=== PATIENT | male | born 1950 | race Caucasian/White ===

== ENCOUNTER 2017-01-20 13:25 | Emergency (ER) | payer BC ==
--- NOTE | 2017-01-20 16:18 | RAD ---
Indication: Bilateral flank pain. CT of the abdomen and pelvis was performed without oral and IV contrast administration. Coronal and sagittal reconstructed images were obtained. Lung bases demonstrate no pleural fluid, nodules or masses. Heart is of normal size without evidence of pericardial effusion. Liver is normal in size. No focal lesions or intrahepatic ductal dilatation is noted. Gallbladder is distended with no calcified gallstones. No pericholecystic fluid or wall thickening is identified. Common duct is not dilated. The spleen is normal in size. No adrenal masses are noted. The pancreas demonstrates no mass or pancreatic duct dilatation. The kidneys demonstrate no hydronephrosis in either kidney. Multiple renal calculi are noted in both kidneys the largest in the lower pole of left kidney measuring up to 8 mm. No retroperitoneal lymphadenopathy is noted. No dilated loops of bowel are noted. The urinary bladder is partially collapsed. No hernias are noted. The remainder of the pelvis demonstrates no evidence of free fluid. No pelvic adenopathy is noted. Small bowel demonstrates no abnormal dilatation. No hernias are noted. Multilevel degenerative disc disease is noted. IMPRESSION: BILATERAL RENAL CALCULI. NO EVIDENCE OF OBSTRUCTIVE UROPATHY IS NOTED HOWEVER. NO OTHER MASSES OR FLUID COLLECTIONS ARE IDENTIFIED.
[2017-01-20 16:24] VITALS: BP 127/68
--- NOTE | 2017-01-20 18:05 | UC ---
Adilene Cantor Edward, scribed for Obdulio Oscar MD on 01/20/17 at 1531 . Back Pain HPI - HPI Summary HPI Summary: 66 y/o male presents to [facility] c/o bilateral flank pain. Pain started a couple of weeks ago and has gotten progressively worse. Pain is characterized as a pounding, sore pain moderate in severity currently. Pain was aggravated last night after the patient took a shower. Denies abd pain, dysuria, fever, chills, and body aches. Associated sx: chronic back pain (takes oxycontin), bilateral pedal edema. PMHx Type 2 DM, fatty liver, kidney stones L side (5 years ago). SHx lilthotripsy (5 years ago). - History of Current Complaint Chief Complaint: UCGeneralIllness Stated Complaint: LOWER BACK PAIN Time Seen by Provider: 01/20/17 15:22 Hx Obtained From: Patient Onset/Duration: Lasting Weeks Severity Initially: Mild Severity Currently: Moderate Character: Aching - "Sore", Throbbing - "Pounding" Aggravating: Bending Associated Signs And Symptoms: Positive: Negative - Chills, Dysuria, body aches , Swelling - Chronic intermittent ankle edema, Flank Pain. Negative: Fever, Abdominal Pain - Allergies/Home Medications Allergies/Adverse Reactions: Allergies Allergy/AdvReac Type Severity Reaction Status Date / Time Pregabalin [From Lyrica] AdvReac Unknown Unknown Verified 01/11/17 14:29 Reaction Details PMH/Surg Hx/FS Hx/Imm Hx - Additional Past Medical History Additional PMH: Chronic back pain. Previously Healthy: No Endocrine History: Diabetes - Type 2, Thyroid Disease Cardiovascular History: Hypertension GI/ History: Kidney Stones - L side - Surgical History Surgical History: Yes Surgery Procedure, Year, and Place: Left Shoulder x2; Right Knee; Back; Lithotripsy - Family History Known Family History: Positive: Cardiac Disease - AFIB. Paternal uncles dec from Cardiac c/o, Other - Mother - stents - Social History Occupation: Retired Lives: Alone Alcohol Use: None Substance Use Type: None Smoking Status (MU): Former Smoker Type: Cigarettes When Did the Patient Quit Smoking/Using Tobacco: 1988 Review of Systems Constitutional: Negative - Negative fever, chills Skin: Negative Eyes: Negative ENT: Negative Respiratory: Negative Cardiovascular: Negative Gastrointestinal: Negative - Negative abd pain Genitourinary: Other - Bilateral flank pain. Negative dysuria Motor: Negative Neurovascular: Negative Musculoskeletal: Edema - Bilateral ankle swelling, Myalgia - Chronic back pain, Other: - Denies body aches Neurological: Negative Psychological: Negative All Other Systems Reviewed And Are Negative: Yes Physical Exam Triage Information Reviewed: Yes Appearance: Well-Appearing, No Pain Distress Vital Signs: Initial Vital Signs Temp 98 F 01/20/17 13:29 Pulse 67 01/20/17 13:29 Resp 16 01/20/17 13:29 BP 124/76 01/20/17 13:29 Pulse Ox 97 01/20/17 13:29 Vital Signs Reviewed: Yes Eye Exam: Normal ENT Exam: Normal Neck: Positive: Supple, Nontender Respiratory: Positive: Lungs clear, Normal breath sounds Cardiovascular: Positive: RRR Abdomen Description: Positive: Nontender, Soft Bowel Sounds: Positive: Present Musculoskeletal: Positive: Strength Intact, ROM Intact, Other: - Tenderness bilateral flanks. No midline tenderness. Neurological: Positive: Alert Psychological Exam: Normal Skin: Positive: Other - 1+ pedal edema Diagnostics - Radiology ABD/PELVIS CT Xray Interpretation: Positive (See Comments) - BILATERAL RENAL CALCULI. NO EVIDENCE OF OBSTRUCTIVE UROPATHY IS NOTED HOWEVER. NO OTHER MASSES OR FLUID COLLECTIONS ARE IDENTIFIED. Radiology Interpretation Completed By: Radiologist Back Pain Course/Dx - Course Course Of Treatment: Medications reviewed on patient visit. DISCUSSED RESULTS OF UA AND CT WITH PATIENT. LABS ORDERED, PATIENT WILL F/U WITH HIS PMD. DISCUSSED WITH PATIENT TO GET LAB RESULTS TONIGHT, HE SHOULD BE EVALUATED IN THE ED. PATIENT HAS NO ANTERIOR ABD PAIN. THE PATIENT DECLINED GOING TO THE ED. HE WISHES TO HAVE LABS DONE HERE. HE AGREED TO GO TO THE ED IF HIS CONDITION WORSENED OR PERSISTED. - Differential Dx/Diagnosis Provider Diagnoses: B/L FLANK PAIN/LUMBAR BACK PAIN. Discharge - Discharge Plan Condition: Stable Disposition: HOME Patient Education Materials: Flank Pain (ED), Back Pain (ED) Referrals: Michele Tracey II, MD [Primary Care Provider] - Additional Instructions: FOLLOW UP WITH YOUR DOCTOR. CALL YOUR DOCTOR FOR FOLLOW UP. YOUR LAB WORK IS PENDING. GO TO THE EMERGENCY DEPARTMENT FOR ANY WORSENING OF YOUR CONDITION; PAIN, FEVER , YOU FEEL ILL OR QUESTIONS OR CONCERNS. The documentation as recorded by the Adilene nieto Edward accurately reflects the service I personally performed and the decisions made by me, Obdulio Oscar MD.
[2017-01-21 11:59] LABS: Albumin 4.6 g/dL (3.2-5.2); BUN/Creatinine Ratio 7.8 (8-20); Calcium 10.5 mg/dL (8.6-10.3); EGFR African American 93.5 (>60); EGFR Non-African American 72.7 (>60); Globulin 3.3 g/dL (2-4); Total Bilirubin 0.7 mg/dL (0.2-1.0); Total Protein 7.9 g/dL (6.4-8.9)
[2017-01-21 12:02] LABS: Potassium 4.4 mmol/L (3.5-5.0)
[2017-01-21 12:04] LABS: TSH (Thyroid Stimulating Horm) 1.96 mcIU/mL (0.34-5.60)
--- NOTE | 2017-01-22 14:09 | UC ---
Progress - Progress Note Progress Note: call and advise patient some liver enzymes are elevated and we are recommending follow up with primary care doctor this week.
== END 2017-01-20 17:51 | disposition home or self-care (01) ==
LOC: UCEAST 13:25
DX: M54.5 Low back pain (principal); R10.32 Left lower quadrant pain; R10.31 Right lower quadrant pain; G89.29 Other chronic pain; E11.9 Type 2 diabetes mellitus without complications; E07.9 Disorder of thyroid, unspecified; K76.0 Fatty (change of) liver, not elsewhere classified; I10 Essential (primary) hypertension; Z87.891 Personal history of nicotine dependence; Z87.442 Personal history of urinary calculi
CPT/HCPCS: 36415; 74176; 80053; 81003; 83690; 84443; 85610; 99211; G0463

== ENCOUNTER 2018-07-13 21:51 | Inpatient (IN) | payer MEDICARE, BC ==
[2018-07-13] MEDS ORDERED: NS 0.9% 1000 ML* 2,000 ML IV ONE (22:19)
--- NOTE | 2018-07-13 22:19 | ED ---
Altered Mental Status - HPI Summary HPI Summary: This patient is a 68 year old M presenting to [facility] accompanied by his daughter and a male with a chief complaint of confusion since earlier today. Patients daughter reports depression. Patient denies nausea, pain, or SOB. His daughter brought him in today and says he goes in and out of making sense. She says he is on a lot of medications. When asked what year it is, he said 2051. His daughter says he hasnt changed his eating habits but they arent great. PMHX Diabetes, chronic back pain from surgeries and a past injury. SHX lives with family. Vitals in the room: HR 98 bpm, BP 152/83. - History Of Current Complaint Chief Complaint: EDAltMentalStatus Stated Complaint: CONFUSED Time Seen by Provider: 07/13/18 22:06 Hx Obtained From: Patient, Family/Bone Process Operator - daughter Onset/Duration: Still Present Timing: Constant Character: Confusion Aggravating Factor(s): Unknown Associated Signs And Symptoms: Positive: Negative - Allergies/Home Medications Allergies/Adverse Reactions: Allergies Allergy/AdvReac Type Severity Reaction Status Date / Time pregabalin [From Lyrica] AdvReac Unknown Edema Verified 07/13/18 21:59 PMH/Surg Hx/FS Hx/Imm Hx Endocrine/Hematology History: Reports: Hx Diabetes, Hx Thyroid Disease Cardiovascular History: Reports: Hx Hypertension Respiratory History: Denies: Hx Asthma, Hx Chronic Obstructive Pulmonary Disease (COPD) GI History: Reports: Hx Gastroesophageal Reflux Disease, Hx Ulcer - gerd Musculoskeletal History: Reports: Hx Back Problems, Hx Gout - Right Foot, Other Musculoskeletal History - Chronic back and shoulder pain - Surgical History Surgery Procedure, Year, and Place: Left Shoulder x2; Right Knee; Back; Lithotripsy Infectious Disease History: Yes Infectious Disease History: Denies: Hx Clostridium Difficile, Hx Hepatitis, Hx Human Immunodeficiency Virus (HIV), Hx of Known/Suspected MRSA, Hx Shingles, Hx Tuberculosis - hx pos TB test, treated, never had disease, Hx Known/Suspected VRE, Hx Known/Suspected VRSA, History Other Infectious Disease, Traveled Outside the [place] in Last 30 Days - Family History Known Family History: Positive: Cardiac Disease - AFIB. Paternal uncles dec from Cardiac c/o, Other - Mother - stents - Social History Lives: With Family Alcohol Use: None Substance Use Type: Reports: None Smoking Status (MU): Former Smoker Type: Cigarettes Review of Systems Negative: Shortness Of Breath Negative: Nausea Negative: Myalgia Neurological: Other - confusion Positive: Depressed All Other Systems Reviewed And Are Negative: Yes Physical Exam - Summary Physical Exam Summary: Appearance: Well-appearing, Well-nourished, lying in bed comfortably Skin: Warm, dry, no obvious rash Eyes: sclera anicteric, no conjunctival pallor ENT: mucous membranes moist, pharynx appears normal Neck: Supple, nontender Respiratory: Clear to auscultation, no signs of respiratory distress Cardiovascular: Normal S1, S2. No murmurs. Normal distal pulses in tibial and radial bilaterally. Abdomen: Soft, nontender, normal active bowel sounds present Musculoskeletal: Normal, Strength/ROM Intact Neurological: A&Ox3, awake and alert, mentation is normal, speech is somewhat rambling and tangential. He is oriented to person and place but not time. Psychiatric: affect is normal, does not appear anxious or depressed GCS: 15 Triage Information Reviewed: Yes Vital Signs On Initial Exam: Initial Vitals Temp Pulse Resp BP Pulse Ox 98.3 F 101 16 154/69 93 07/13/18 21:52 07/13/18 21:52 07/13/18 21:52 07/13/18 21:52 07/13/18 21:52 Vital Signs Reviewed: Yes Diagnostics - Vital Signs Vital Signs Temp Pulse Resp BP Pulse Ox 07/13/18 22:06 101 152/83 91 07/13/18 22:05 102 92 07/13/18 21:52 98.3 F 101 16 154/69 93 - Laboratory Result Diagrams: 07/13/18 22:45 07/13/18 22:45 Lab Statement: Any lab studies that have been ordered have been reviewed, and results considered in the medical decision making process. - CT Brain CT Interpretation Completed By: Radiologist Summary of CT Findings: No acute findings. ED physician has reviewed this report - EKG 22:22 Cardiac Rate: NL - 97 bpm EKG Rhythm: Sinus Rhythm Summary of EKG Findings: P waves, QRS complex, and T waves are within normal limits, T waves and intervals are normal, no ischemic changes. Altered Mental Statu Course/Dx - Course Course Of Treatment: This patient is a 68 year old M presenting to [facility] accompanied by his daughter and a male with a chief complaint of confusion since earlier today. Patients daughter reports depression. Patient denies nausea, pain, or SOB. His daughter brought him in today and says he goes in and out of making sense. An EKG reveals NSR 97 bpm, P waves, QRS complex, and T waves are within normal limits, T waves and intervals are normal, no ischemic changes. Brain CT reveals, per radiologist, no acute findings. ED physician has reviewed this radiology report. Test results with no significant abnormalities except for glucose 1134 H, POC glucose >444 H, and lactic acid 4.3 H. In the ED course the patient was given Dextrose, Insulin, and IV fluids. We discussed patient care with Dr. Andrade and they recommended admission. Patient will be admitted. The patient is agreeable with this plan. - Diagnoses Provider Diagnoses: Uncontrolled type 2 DM with hyperosmolar nonketotic hyperglycemia - Provider Notifications Discussed Care Of Patient With: Laurence Andrade Time Discussed With Above Provider: 00:07 Instructed by Provider To: Admit As Inpatient Discharge - Sign-Out/Discharge Documenting (check all that apply): Patient Departure - admission - Discharge Plan Condition: Fair Disposition: ADMITTED TO [facility] - Billing Disposition and Condition Condition: FAIR Disposition: Admitted to [facility] - Attestation Statements Document Initiated by Kattibe: Yes Documenting Scribe: Tommie Marquez Provider For Whom Tara is Documenting (Include Credential): Mika Menard MD Scribe Attestation: Tommie Cantor, scribed for Mika Menard MD on 07/14/18 at 0211. Scribe Documentation Reviewed: Yes Provider Attestation: The documentation as recorded by the Tommie nieto accurately reflects the service I personally performed and the decisions made by me, Mika Menard MD Status of Scribe Document: Viewed
[2018-07-13 23:27] LABS: Hematocrit 39 % (42-52); Hemoglobin 13.4 g/dl (14.0-18.0); Mean Corpuscular HGB Conc 34 g/dl (31-36); Mean Corpuscular Hemoglobin 33 pg (27-31); Mean Corpuscular Volume 98 fL (80-94); Mean Platelet Volume 9.8 fL (7.4-10.4); Platelet Count 153 10^3/ul (150-450); Red Blood Count 4.03 10^6/ul (4.00-5.40); Red Cell Distribution Width 12 % (10.5-15); White Blood Count 15.1 10^3/ul (3.5-10.8)
[2018-07-13 23:28] LABS: Urine Appearance Clear; Urine Bilirubin Negative (Negative); Urine Blood Negative (Negative); Urine Color Amber; Urine Glucose 3+(>=500 mg/dL) (Negative); Urine Ketones Negative (Negative); Urine Nitrite Negative (Negative); Urine Protein Negative (Negative); Urine Specific Gravity 1.028 (1.010-1.030); Urine Urobilinogen Negative (Negative)
[2018-07-13] MEDS ORDERED: Dextrose 50% Syringe 50 ML* 25 GM/50 ML SYRINGE IV PUSH PRN (23:32)
[2018-07-13] MEDS ORDERED: Insulin LISPRO* 1 UNITS UNIT SUBCUT ONE (23:32)
[2018-07-13 23:45] LABS: ALT 33 U/L (7-52); AST 22 U/L (13-39); Albumin 3.8 g/dL (3.2-5.2); Albumin/Globulin Ratio 0.9 (1-3); Alkaline Phosphatase 106 U/L (34-104); Anion Gap 15 mmol/L (2-11); BUN/Creatinine Ratio 12.4 (8-20); Blood Urea Nitrogen 19 mg/dL (6-24); CO2 Carbon Dioxide 24 mmol/L (22-32); Calcium 9.6 mg/dL (8.6-10.3); Chloride 87 mmol/L (101-111); EGFR Non-African American 45.8 (>60); Globulin 4.3 g/dL (2-4); Potassium 4.3 mmol/L (3.5-5.0); Sodium 126 mmol/L (135-145); Total Protein 8.1 g/dL (6.4-8.9)
[2018-07-13 23:47] LABS: Barbiturates Urine Screen None Detected (None Detect); Benzodiazepine Urine Screen None Detected (None Detect); Urine Cannabinoids Screen None Detected (None Detect)
[2018-07-13 23:53] LABS: ABS Basophils 0.1 10^3/ul (0-0.2); ABS Eosinophils 0 10^3/ul (0-0.6); ABS Lymphocytes 1.9 10^3/ul (1.0-4.8); ABS Monocytes 1.7 10^3/ul (0-0.8); ABS Neutrophils 11.4 10^3/ul (1.5-7.7); ABS Nucleated RBC 0 10^3/ul; Eosinophil % 0.1 %; Lymphocyte % 12.4 %; Nucleated Red Blood Cells % 0
[2018-07-14] LABS: Alcohol < 10 mg/dL (<10); Glucose 1134 mg/dL (70-100)
[2018-07-14] MEDS ORDERED: Insulin GLARGINE(*) 1 UNITS UNIT SUBCUT ONE (00:06)
[2018-07-14 00:14] LABS: TSH (Thyroid Stimulating Horm) 1.04 mcIU/mL (0.34-5.60)
[2018-07-14] MEDS ORDERED: NS 0.9% 1000 ML* 1,000 ML IV SCH (00:45)
--- NOTE | 2018-07-14 01:11 | ADMNOTE ---
Subjective Date of Service: 07/14/18 Interval History: code status full this is admission h/p source from daughter hcp/surrogate deann [phone] hpi this is a 68 yr old wm with hx of type ii dm morbid obesity and other medical problems was brought in due to confusion. info got from daughter first because of pt's confusion and slurred speech. daughter says pt was fine at 330 pm but when she got home around 845 pm, pt has become very confused. called pcp in [place] and was told to come in---> intial wbc 15 with lactic acid 4.3 but does not have fever spike. intiial ua and chest x ray both neg head ct/trop and ekg neg but pt was found to have blood sugar of 1100 with resultant ag of 15 and na of 126. as per daughter he missed his dm injection med for two weeks ---> pt later was more awake and stated he was off it because of dose miscalculation from pharmacy ---> " just off it for one week " he had an episode of delusion psychosis 2-3 yrs ago after his grandson was dxd with lice ---> pt thought he had bugs crawling on him all the time ---> no recurrence until tonight. daughter saw him started to pick on his skin again f/s 1100 got humalog 12 along with lantus 10 from er followed by insulin drip 5 units/hr ---> f/s 819 prior to insulin drip started phx type ii dm with prob neuropathy chronic lbp with neuropathy chronic pain syndrome due to lower problem morbid obesity ( denied mitchell ) hyperlipidemia hypothyroidism ? psy hx on risperidol bid ---> according to daughter, he had an episode of delusion psychosis 2-3 yrs ago after his grandson was dxd with lice ---> pt thought he had bugs crawling on him all the time ---> no recurrence until tonight hx of gout pshx lumbar spine surgery social hx quit cig smoke occ uses nicotine pouch rare etoh no ivda walks indep lives with daughter fhx mom + type ii dm Review of Systems - Measurements Intake and Output: Intake and Output Last 24 Hours 07/11/18 07/12/18 07/13/18 07/14/18 06:59 06:59 06:59 06:59 Intake Total 1999 Balance 1999 Weight 230 lb Intake: IV Fluids 1999 - Review of Systems General Comments: pertinent as per hpi Objective Active Medications: Dextrose (D50w Syringe 50 Ml*) 12.5 gm IV PUSH .FOR FS < 60 - SS PRN PRN Reason: FS < 60 Heparin Sodium (Porcine) (Heparin Vial(*)) 5,000 units SUBCUT Q8HR LARA Sodium Chloride (Ns 0.9% 1000 Ml*) 1,000 mls @ 125 mls/hr IV PER RATE LARA Insulin Human Regular (Insulin Regular Iv Drip 1 Unit/Ml) 100 units in 100 mls @ 5 mls/hr IVPB .(Initial Rate) [facility] Vital Signs - 8 hr 07/13/18 07/13/18 07/13/18 21:52 22:05 22:06 Temperature 98.3 F Pulse Rate 101 102 101 Respiratory 16 Rate Blood Pressure 154/69 152/83 (mmHg) O2 Sat by Pulse 93 92 91 Oximetry 07/13/18 07/13/18 07/13/18 22:45 23:00 23:06 Temperature Pulse Rate 93 94 94 Respiratory Rate Blood Pressure 145/62 162/71 (mmHg) O2 Sat by Pulse 89 88 95 Oximetry 07/14/18 07/14/18 07/14/18 00:00 00:03 00:04 Temperature Pulse Rate 88 89 93 Respiratory 15 18 17 Rate Blood Pressure 158/80 (mmHg) O2 Sat by Pulse 91 89 91 Oximetry 07/14/18 07/14/18 07/14/18 00:06 00:24 00:36 Temperature Pulse Rate 93 88 88 Respiratory 15 19 20 Rate Blood Pressure 156/102 146/69 139/75 (mmHg) O2 Sat by Pulse 91 91 90 Oximetry 07/14/18 01:00 Temperature Pulse Rate 86 Respiratory 12 Rate Blood Pressure (mmHg) O2 Sat by Pulse 92 Oximetry Oxygen Devices in Use Now: None Appearance: nad Eyes: No Scleral Icterus, PERRLA Ears/Nose/Mouth/Throat: NL Teeth, Lips, Gums, Clear Oropharnyx, Mucous Membranes Moist Neck: NL Appearance and Movements; NL JVP, Trachea Midline, No Thyroid Enlargement, Masses Respiratory: Symmetrical Chest Expansion and Respiratory Effort, Clear to Auscultation Cardiovascular: NL Sounds; No Murmurs; No JVD, RRR Abdominal: NL Sounds; No Tenderness; No Distention Extremities: No Edema, - - able to raise ue and le against gravity Skin: No Rash or Ulcers Neurological: Alert and Oriented x 3, NL Sensation, NL Muscle Strength and Tone Result Diagrams: 07/13/18 22:45 07/14/18 01:52 EKG Data: ekg ns no acute st t changes Assess/Plan/Problems-Billing Assessment: this is a 68 yr old wm with hx of type ii dm did not use his im inj of dm for two weeks presented to er with hyperosmolar diaetic keto acidosis ---> his f/s was 1100 ag is mildly elevated at 15. pt got lantus 10 units and humalog 12 units ---> will start insulin drip at this time his mental status now has coming back close to his baseline - Patient Problems (1) Hyperosmolar non-ketotic state in patient with type 2 diabetes mellitus Current Visit: Yes Status: Acute Code(s): E11.01 - TYPE 2 DIABETES MELLITUS WITH HYPEROSMOLARITY WITH COMA SNOMED Code(s): 434743939 Comment: ivf f/s q 1 hr will ck his labs bmp q 4 hr instead of q 2 hrs insulin drip until sugar coming down to close to 200s got one dose of lantus 10 subq from er (2) Altered mental status Current Visit: Yes Status: Acute Code(s): R41.82 - ALTERED MENTAL STATUS, UNSPECIFIED SNOMED Code(s): 789474744 Comment: could be related to his sugar head ct neg now is back to his baseline ms tele with moni will continue asa from er carotid in the am (3) Type 2 diabetes, uncontrolled, with neuropathy Current Visit: Yes Status: Acute Code(s): E11.40 - TYPE 2 DIABETES MELLITUS WITH DIABETIC NEUROPATHY, UNSP; E11.65 - TYPE 2 DIABETES MELLITUS WITH HYPERGLYCEMIA SNOMED Code(s): 72246391 Comment: ck his a1c insulin drip ck f/s q1 with labs q 4 hrs (4) Hyperlipidemia Current Visit: Yes Status: Acute Code(s): E78.5 - HYPERLIPIDEMIA, UNSPECIFIED SNOMED Code(s): 24952868 Comment: lft wnl ck fasting lipid in am (5) Nicotine dependence Current Visit: Yes Status: Acute Code(s): F17.200 - NICOTINE DEPENDENCE, UNSPECIFIED, UNCOMPLICATED SNOMED Code(s): 61100625 Comment: was on prn pouch outpt nothing for now moniter (6) Leukocytosis Current Visit: Yes Status: Acute Code(s): D72.829 - ELEVATED WHITE BLOOD CELL COUNT, UNSPECIFIED SNOMED Code(s): 277643092 Comment: no apparant souce f infection ua chest x ray all neg no abx ordered yet (7) Lactic acid acidosis Current Visit: Yes Status: Acute Code(s): E87.2 - ACIDOSIS SNOMED Code(s) : 11058085 (8) Psychiatric disorder Current Visit: Yes Status: Acute Code(s): F99 - MENTAL DISORDER, NOT OTHERWISE SPECIFIED SNOMED Code(s): 52027985 Comment: continue outpt psy meds (9) Hypothyroid Current Visit: Yes Status: Acute Code(s): E03.9 - HYPOTHYROIDISM, UNSPECIFIED SNOMED Code(s): 08246259 Comment: tsh wnl continue outpt med (10) Chronic pain syndrome Current Visit: Yes Status: Acute Code(s): G89.4 - CHRONIC PAIN SYNDROME SNOMED Code(s): 928071194 Comment: due to his chronic lbp with neuropathy from lb problem and neuropathy (11) Neuropathy Current Visit: Yes Status: Acute Code(s): G62.9 - POLYNEUROPATHY, UNSPECIFIED SNOMED Code(s): 789619914 Comment: neuropathy due to type ii dm and lb problem continue outpt meds (12) DVT prophylaxis Current Visit: Yes Status: Acute Code(s): SLA4254 - SNOMED Code(s): 287318739 Comment: lovenox (13) Renal injury Current Visit: Yes Status: Acute Code(s): S37.009A - UNSPECIFIED INJURY OF UNSPECIFIED KIDNEY, INITIAL ENCOUNTER SNOMED Code(s): 34366242 Comment: no prior creatinine to compare ivf and moniter lytes and input and outpt at this point (14) Gout Current Visit: Yes Status: Acute Code(s): M10.9 - GOUT, UNSPECIFIED SNOMED Code(s): 10209506 Comment: continue his allopurinol
[2018-07-14 01:22] LABS: Magnesium 2.2 mg/dL (1.9-2.7); Phosphorus 4.4 mg/dL (2.5-5.0)
[2018-07-14] MEDS ORDERED: Insulin IVPB 100 units/100 ml 100 UNITS/100 ML UNIT IVPB SCH ×3 (01:30→02:08)
[2018-07-14 02:19] LABS: Calcium 9.3 mg/dL (8.6-10.3); EGFR Non-African American 54.7 (>60); Magnesium 2.2 mg/dL (1.9-2.7); Phosphorus 2.4 mg/dL (2.5-5.0); Potassium 3.6 mmol/L (3.5-5.0)
[2018-07-14] MEDS ORDERED: oxyCODONE SR TAB(*) 15 MG TAB.SR PO PRN (05:00)
[2018-07-14] MEDS ORDERED: Insulin GLARGINE(*) 1 UNITS UNIT SUBCUT SCH (06:00)
[2018-07-14 06:16] LABS: Hematocrit 35 % (42-52); Hemoglobin 12.4 g/dl (14.0-18.0); Mean Corpuscular HGB Conc 36 g/dl (31-36); Mean Corpuscular Hemoglobin 34 pg (27-31); Mean Corpuscular Volume 94 fL (80-94); Mean Platelet Volume 9.2 fL (7.4-10.4); Platelet Count 146 10^3/ul (150-450); Red Blood Count 3.66 10^6/ul (4.00-5.40); Red Cell Distribution Width 12 % (10.5-15); White Blood Count 16.1 10^3/ul (3.5-10.8)
[2018-07-14 06:19] LABS: ABS Basophils 0.2 10^3/ul (0-0.2); ABS Eosinophils 0.1 10^3/ul (0-0.6); ABS Lymphocytes 3.4 10^3/ul (1.0-4.8); ABS Monocytes 2.3 10^3/ul (0-0.8); ABS Neutrophils 10.1 10^3/ul (1.5-7.7); ABS Nucleated RBC 0 10^3/ul; Eosinophil % 0.7 %; Lymphocyte % 20.9 %; Nucleated Red Blood Cells % 0
[2018-07-14] MEDS: Levothyroxine TAB* 137 MCG TAB PO SCH (06:32)
[2018-07-14] MEDS: Heparin VIAL(*) 5000 UNITS/ML VIAL (FIVE THOUSAND) SUBCUT SCH ×3 (06:32→21:13)
[2018-07-14 06:40] LABS: BUN/Creatinine Ratio 13.9 (8-20); Calcium 8.9 mg/dL (8.6-10.3); EGFR Non-African American 73.9 (>60); HDL Cholesterol 21.1 mg/dL; Potassium 3.1 mmol/L (3.5-5.0)
[2018-07-14] MEDS: NS 0.9% 1000 ML* 1,000 ML IV SCH (07:15)
[2018-07-14] MEDS ORDERED: Dextrose 50% Syringe 50 ML* 25 GM/50 ML SYRINGE IV PUSH PRN ×2 (08:39→12:54)
[2018-07-14] MEDS ORDERED: (Felodipine [Felodipine Er] 10 MG) PO SCH (09:00)
[2018-07-14] MEDS ORDERED: Potassium Chlor TAB* 20 MEQ TAB.ER PO STA (09:20)
[2018-07-14] MEDS ORDERED: amLODIPine TAB* 5 MG PO SCH (09:38)
[2018-07-14] MEDS: Omeprazole CAP* 20 MG PO SCH (09:50)
[2018-07-14] MEDS: Amitriptyline TAB* 25 MG PO SCH (09:50)
[2018-07-14] MEDS: Potassium Chlor TAB* 20 MEQ TAB.ER PO SCH ×2 (09:50→21:13)
[2018-07-14] MEDS: Nabumetone TAB* 500 MG PO SCH (09:50)
[2018-07-14] MEDS: Gabapentin CAP(*) 100 MG PO SCH ×2 (09:50→20:12)
[2018-07-14] MEDS: Aspirin EC TAB* 81 MG TAB.EC PO SCH (09:50)
[2018-07-14] MEDS: Allopurinol TAB* 100 MG PO SCH (09:50)
[2018-07-14] MEDS: Atorvastatin* 10 MG TAB PO SCH (09:51)
[2018-07-14] MEDS ORDERED: Vancomycin per Pharmacy* NOTE FOLLOW UP PRN (09:52)
[2018-07-14] MEDS ORDERED: Vancomycin(*) 1,250 MG in NS 0.9% 250 ML* 250 ML IVPB ONE (10:00)
[2018-07-14] MEDS ORDERED: Piperacillin/Tazobac ADVAN(*) 3.375 GM in NS 0.9% 100 ML* 100 ML IVPB SCH (10:00)
[2018-07-14] MEDS ORDERED: Zosyn per Pharmacy* NOTE FOLLOW UP SCH (10:00)
[2018-07-14 10:39] LABS: BUN/Creatinine Ratio 13.3 (8-20); Calcium 8.7 mg/dL (8.6-10.3); EGFR Non-African American 76.5 (>60); Magnesium 1.7 mg/dL (1.9-2.7); Potassium 3.6 mmol/L (3.5-5.0)
[2018-07-14] MEDS: amLODIPine TAB* 5 MG PO SCH (11:12)
[2018-07-14] MEDS: Oseltamivir CAP* 75 MG CAP PO SCH ×2 (11:12→21:13)
[2018-07-14] MEDS ORDERED: Insulin LISPRO* 1 UNITS UNIT SUBCUT SCH (11:30)
[2018-07-14] MEDS: Piperacillin/Tazobac ADVAN(*) 3.375 GM in NS 0.9% 100 ML* 100 ML IVPB SCH ×2 (13:49→22:03)
--- NOTE | 2018-07-14 14:44 | PN ---
Subjective Date of Service: 07/14/18 Interval History: Pt seen and examined. Meds and labs reviewed. CC: Pt mentions he has been having dry cough x1 week, accompanied by myalgias and arthralgiasl; pt also became more confused later during the day when compared to this AM; pt mentions many of his family members are sick with flu ROS: Denied CAMACHO/dizziness, F/C, N/V, CP, SOB, sputum production, abd pain, diarrhea, constipation, dysuria, throat pain, and new skin lesions. The rest of the 14 point ROS are unremarkable. PHYSICAL EXAM: GEN APPEARANCE: Awake, not in acute distress HEENT: NC/AT, PERRLA, moist oral mucosa, (-) throat erythema NECK: Soft, supple, (-) cervical LAD, (-)JVD HEART: S1S2 WNL, RRR, No MRG CHEST: CTA, BL, GAE, No W/R/R ABD: Soft, ND/NT, NABS 4x Q EXT: No C/C/E SKIN: Warm to touch PSYCH: No active psychosis, hallucinations, depression, SI/HI Objective Active Medications: Allopurinol (Zyloprim Tab*) 100 mg PO DAILY [facility] Last Admin: 07/14/18 09:50 Dose: 100 mg Amitriptyline HCl (Elavil Tab*) 75 mg PO DAILY [facility] Last Admin: 07/14/18 09:50 Dose: 75 mg Amlodipine Besylate (Norvasc Tab*) 10 mg PO 0900 [facility] Last Admin: 07/14/18 11:12 Dose: 10 mg Aspirin (Aspirin Ec Tab*) 162 mg PO DAILY [facility] Last Admin: 07/14/18 09:50 Dose: 162 mg Atorvastatin Calcium (Lipitor*) 10 mg PO DAILY [facility] Last Admin: 07/14/18 09:51 Dose: 10 mg Dextrose (D50w Syringe 50 Ml*) 12.5 gm IV PUSH .FOR FS < 60 - SS PRN PRN Reason: FS < 60 Heparin Sodium (Porcine) (Heparin Vial(*)) 5,000 units SUBCUT Q8HR [facility] Last Admin: 07/14/18 06:32 Dose: 5,000 units Sodium Chloride (Ns 0.9% 1000 Ml*) 1,000 mls @ 150 mls/hr IV PER RATE [facility] Vancomycin HCl 1,250 mg/ (Sodium Chloride) 250 mls @ 166.667 mls/hr IVPB Q12H [facility] Piperacillin Sod/Tazobactam (Sod 3.375 gm/ Sodium Chloride) 100 mls @ 25 mls/ hr IVPB 0500,1300,2100 [facility] Azithromycin 500 mg/ Sodium (Chloride) 250 mls @ 250 mls/hr IVPB Q24H [facility] Insulin Glargine (Lantus(*)) 16 units SUBCUT Q24H [facility] Insulin Human Lispro (Humalog*) 6 units SUBCUT AC [facility] Insulin Human Lispro (Humalog*) 0 units SUBCUT ACHS [facility]; Protocol Levothyroxine Sodium (Synthroid Tab*) 137 mcg PO 0600 [facility] Last Admin: 07/14/18 06:32 Dose: 137 mcg Nabumetone (Relafen Tab*) 500 mg PO DAILY [facility] Last Admin: 07/14/18 09:50 Dose: 500 mg Omeprazole (Prilosec Cap*) 20 mg PO DAILY [facility] Last Admin: 07/14/18 09:50 Dose: 20 mg Oseltamivir Phosphate (Tamiflu Cap*) 75 mg PO BID [facility] Stop: 07/19/18 09:59 Last Admin: 07/14/18 11:12 Dose: 75 mg Pharmacy Consult (Zosyn Per Pharmacy*) 1 note FOLLOW UP .ZOSYN PER PHARMACY [facility] Pharmacy Consult (Vancomycin Per Pharmacy*) 1 note FOLLOW UP . PRN PRN Reason: PER PROTOCOL Pharmacy Profile Note (Vancomycin Trough Check) 1 note FOLLOW UP 1000 ONE Stop: 07/16/18 10:01 Potassium Chloride (Klor Con Er Tab*) 20 meq PO BID [facility] Last Admin: 07/14/18 09:50 Dose: 20 meq Vital Signs - 8 hr 07/14/18 07/14/18 07/14/18 07:00 07:01 07:38 Temperature 98.7 F Pulse Rate 78 76 Respiratory 22 17 Rate Blood Pressure 129/68 (mmHg) O2 Sat by Pulse 89 89 Oximetry 07/14/18 07/14/18 07/14/18 08:00 08:01 09:00 Temperature Pulse Rate 79 79 90 Respiratory 14 16 18 Rate Blood Pressure 133/55 (mmHg) O2 Sat by Pulse 94 94 97 Oximetry 07/14/18 07/14/18 07/14/18 09:03 10:00 10:01 Temperature Pulse Rate 89 92 89 Respiratory 16 14 12 Rate Blood Pressure 139/79 170/93 (mmHg) O2 Sat by Pulse 96 93 95 Oximetry 07/14/18 07/14/18 07/14/18 11:00 11:01 11:02 Temperature Pulse Rate 93 Respiratory 19 20 Rate Blood Pressure 151/75 (mmHg) O2 Sat by Pulse 92 Oximetry 07/14/18 07/14/18 11:12 12:00 Temperature Pulse Rate 99 Respiratory 14 21 Rate Blood Pressure (mmHg) O2 Sat by Pulse 93 Oximetry Oxygen Devices in Use Now: None Result Diagrams: 07/14/18 06:03 07/14/18 10:15 Microbiology and Other Data: Microbiology 07/14/18 01:27 Nasal Screen MRSA (PCR) - Final Nasal Mrsa Not Detected 07/14/18 01:27 Influenza Types A,B Antigen - Final Nasopharyngeal Specimen received for Influenza A/B Molecular testing EKG Data: ekg ns no acute st t changes Assess/Plan/Problems-Billing Assessment: this is a 68 yr old wm with hx of type ii dm did not use his im inj of dm for two weeks presented to er with hyperosmolar diaetic keto acidosis ---> his f/s was 1100 ag is mildly elevated at 15. pt got lantus 10 units and humalog 12 units ---> will start insulin drip at this time his mental status now has coming back close to his baseline - Patient Problems (1) Sepsis due to pneumonia Current Visit: Yes Status: Acute Code(s): J18.9 - PNEUMONIA, UNSPECIFIED ORGANISM; A41.9 - SEPSIS, UNSPECIFIED ORGANISM SNOMED Code(s): 07539573 Comment: -Likely cause of MS change, elevated lactic acid -Will D/C opiate pain meds, Gabapentin, and Risperdal -Placed pt on Zosyn and Vancomycin given sepsis; will place on Azithromycin for atypicals -Given recent contact with flu along with his S/S, will place pt on Tamiflu despite flu screen being negative -Continue watchful waiting -Likely induced hyperosmolar non-ketotic state (2) Type 2 diabetes, uncontrolled, with neuropathy Current Visit: Yes Status: Acute Code(s): E11.40 - TYPE 2 DIABETES MELLITUS WITH DIABETIC NEUROPATHY, UNSP; E11.65 - TYPE 2 DIABETES MELLITUS WITH HYPERGLYCEMIA SNOMED Code(s): 99331211 Comment: -Adjusted Insulin regimen -Continue watchful waiting (3) Hyperlipidemia Current Visit: Yes Status: Acute Code(s): E78.5 - HYPERLIPIDEMIA, UNSPECIFIED SNOMED Code(s): 38332915 Comment: -Continue Atorvastatin (4) Hypothyroid Current Visit: Yes Status: Acute Code(s): E03.9 - HYPOTHYROIDISM, UNSPECIFIED SNOMED Code(s): 08794940 Comment: -Continue Levothyroxine (5) DVT prophylaxis Current Visit: Yes Status: Acute Code(s): AXT5594 - SNOMED Code(s): 584928286 Comment: -Continue Heparin SQq8H Status and Disposition: -As above
[2018-07-14] MEDS: Azithromycin IV(*) 500 MG in NS 0.9% 250 ML* 250 ML IVPB SCH (15:07)
[2018-07-14] MEDS: Insulin LISPRO* 1 UNITS UNIT SUBCUT SCH ×3 (16:53→21:12)
[2018-07-14] MEDS ORDERED: Gabapentin CAP(*) 400 MG PO SCH (21:00)
[2018-07-14] MEDS: Vancomycin(*) 1,250 MG in NS 0.9% 250 ML* 250 ML IVPB SCH (22:28)
[2018-07-14] MEDS: oxyCODONE SR TAB(*) 15 MG TAB.SR PO PRN (22:39)
[2018-07-15] MEDS: Piperacillin/Tazobac ADVAN(*) 3.375 GM in NS 0.9% 100 ML* 100 ML IVPB SCH ×3 (06:21→19:57)
[2018-07-15] MEDS: Levothyroxine TAB* 137 MCG TAB PO SCH (06:21)
[2018-07-15] MEDS: Heparin VIAL(*) 5000 UNITS/ML VIAL (FIVE THOUSAND) SUBCUT SCH ×3 (06:21→21:50)
[2018-07-15] MEDS: Insulin GLARGINE(*) 1 UNITS UNIT SUBCUT SCH (06:22)
[2018-07-15] MEDS: Aspirin EC TAB* 81 MG TAB.EC PO SCH (08:19)
[2018-07-15] MEDS: Nabumetone TAB* 500 MG PO SCH (08:19)
[2018-07-15] MEDS: amLODIPine TAB* 5 MG PO SCH (08:19)
[2018-07-15] MEDS: Omeprazole CAP* 20 MG PO SCH (08:19)
[2018-07-15] MEDS: Amitriptyline TAB* 25 MG PO SCH (08:20)
[2018-07-15] MEDS: Potassium Chlor TAB* 20 MEQ TAB.ER PO SCH ×2 (08:20→19:57)
[2018-07-15] MEDS: Allopurinol TAB* 100 MG PO SCH (08:20)
[2018-07-15] MEDS: Oseltamivir CAP* 75 MG CAP PO SCH ×2 (08:20→19:57)
[2018-07-15] MEDS: Atorvastatin* 10 MG TAB PO SCH (08:20)
[2018-07-15] MEDS: Insulin LISPRO* 1 UNITS UNIT SUBCUT SCH ×7 (08:27→21:50)
[2018-07-15 09:04] LABS: Hematocrit 35 % (42-52); Hemoglobin 12.2 g/dl (14.0-18.0); Mean Corpuscular HGB Conc 35 g/dl (31-36); Mean Corpuscular Hemoglobin 33 pg (27-31); Mean Corpuscular Volume 94 fL (80-94); Mean Platelet Volume 9.4 fL (7.4-10.4); Platelet Count 137 10^3/ul (150-450); Red Blood Count 3.73 10^6/ul (4.00-5.40); Red Cell Distribution Width 12 % (10.5-15); White Blood Count 15.4 10^3/ul (3.5-10.8)
[2018-07-15] MEDS: NS 0.9% 1000 ML* 1,000 ML IV SCH ×2 (09:05→17:53)
[2018-07-15 09:21] LABS: Albumin 3.2 g/dL (3.2-5.2); Albumin/Globulin Ratio 0.8 (1-3); BUN/Creatinine Ratio 12.8 (8-20); Calcium 8.3 mg/dL (8.6-10.3); EGFR Non-African American 99.6 (>60); Globulin 3.8 g/dL (2-4); Magnesium 1.6 mg/dL (1.9-2.7); Potassium 3.5 mmol/L (3.5-5.0); Total Bilirubin 1.1 mg/dL (0.2-1.0)
[2018-07-15] MEDS ORDERED: Metoprolol Tartrate IV* 1 MG/ML 5 ML VIAL IV PRN (09:32)
[2018-07-15 09:37] LABS: ABS Basophils 0.2 10^3/ul (0-0.2); ABS Eosinophils 0.2 10^3/ul (0-0.6); ABS Lymphocytes 2.7 10^3/ul (1.0-4.8); ABS Monocytes 1.6 10^3/ul (0-0.8); ABS Neutrophils 10.7 10^3/ul (1.5-7.7); ABS Nucleated RBC 0 10^3/ul; Eosinophil % 1.1 %; Lymphocyte % 17.7 %; Nucleated Red Blood Cells % 0.1
[2018-07-15] MEDS: Lisinopril TAB* 10 MG PO SCH (09:55)
[2018-07-15] MEDS: Vancomycin(*) 1,250 MG in NS 0.9% 250 ML* 250 ML IVPB SCH ×2 (10:34→21:50)
[2018-07-15] MEDS: Azithromycin IV(*) 500 MG in NS 0.9% 250 ML* 250 ML IVPB SCH (15:19)
--- NOTE | 2018-07-15 15:36 | PN ---
Subjective Date of Service: 07/15/18 Interval History: Pt seen and examined. Meds and labs reviewed. CC: N/A ROS: Denied CAMACHO/dizziness, F/C, N/V, CP, SOB, increased cough, sputum production , abd pain, diarrhea, constipation, dysuria, myalgias, arthralgias, throat pain , and new skin lesions. The rest of the 14 point ROS are unremarkable. PHYSICAL EXAM: GEN APPEARANCE: Awake, not in acute distress, oriented x 3 HEENT: NC/AT, PERRLA, moist oral mucosa, (-) throat erythema NECK: Soft, supple, (-) cervical LAD, (-)JVD HEART: S1S2 WNL, RRR, No MRG CHEST: CTA, BL, GAE, No W/R/R ABD: Soft, ND/NT, NABS 4x Q EXT: No C/C/E SKIN: Warm to touch PSYCH: No active psychosis, hallucinations, depression, SI/HI Objective Active Medications: Allopurinol (Zyloprim Tab*) 100 mg PO DAILY [facility] Last Admin: 07/15/18 08:20 Dose: 100 mg Amitriptyline HCl (Elavil Tab*) 75 mg PO DAILY [facility] Last Admin: 07/15/18 08:20 Dose: 75 mg Amlodipine Besylate (Norvasc Tab*) 10 mg PO 0900 [facility] Last Admin: 07/15/18 08:19 Dose: 10 mg Aspirin (Aspirin Ec Tab*) 162 mg PO DAILY [facility] Last Admin: 07/15/18 08:19 Dose: 162 mg Atorvastatin Calcium (Lipitor*) 10 mg PO DAILY [facility] Last Admin: 07/15/18 08:20 Dose: 10 mg Dextrose (D50w Syringe 50 Ml*) 12.5 gm IV PUSH .FOR FS < 60 - SS PRN PRN Reason: FS < 60 Heparin Sodium (Porcine) (Heparin Vial(*)) 5,000 units SUBCUT Q8HR [facility] Last Admin: 07/15/18 13:49 Dose: 5,000 units Sodium Chloride (Ns 0.9% 1000 Ml*) 1,000 mls @ 150 mls/hr IV PER RATE [facility] Last Admin: 07/15/18 09:05 Dose: 150 mls/hr Vancomycin HCl 1,250 mg/ (Sodium Chloride) 250 mls @ 166.667 mls/hr IVPB Q12H [facility] Last Admin: 07/15/18 10:34 Dose: 166.667 mls/hr Piperacillin Sod/Tazobactam (Sod 3.375 gm/ Sodium Chloride) 100 mls @ 25 mls/ hr IVPB 0500,1300,2100 [facility] Last Admin: 07/15/18 13:49 Dose: 25 mls/hr Azithromycin 500 mg/ Sodium (Chloride) 250 mls @ 250 mls/hr IVPB Q24H [facility] Last Admin: 07/15/18 15:19 Dose: 250 mls/hr Insulin Glargine (Lantus(*)) 16 units SUBCUT Q24H [facility] Last Admin: 07/15/18 06:22 Dose: 16 units Insulin Human Lispro (Humalog*) 6 units SUBCUT AC [facility] Last Admin: 07/15/18 12:36 Dose: 6 unit Insulin Human Lispro (Humalog*) 0 units SUBCUT ACHS [facility]; Protocol Last Admin: 07/15/18 12:36 Dose: 6 unit Levothyroxine Sodium (Synthroid Tab*) 137 mcg PO 0600 [facility] Last Admin: 07/15/18 06:21 Dose: 137 mcg Lisinopril (Prinivil Tab*) 10 mg PO DAILY [facility] Last Admin: 07/15/18 09:55 Dose: 10 mg Metoprolol Tartrate (Lopressor Iv*) 5 mg IV Q6H PRN PRN Reason: BLOOD PRESSURE Last Admin: 07/15/18 09:55 Dose: 5 mg Nabumetone (Relafen Tab*) 500 mg PO DAILY [facility] Last Admin: 07/15/18 08:19 Dose: 500 mg Omeprazole (Prilosec Cap*) 20 mg PO DAILY [facility] Last Admin: 07/15/18 08:19 Dose: 20 mg Oseltamivir Phosphate (Tamiflu Cap*) 75 mg PO BID [facility] Stop: 07/19/18 09:59 Last Admin: 07/15/18 08:20 Dose: 75 mg Oxycodone HCl (Oxycontin(*)) 30 mg PO BID PRN PRN Reason: PAIN Last Admin: 07/14/18 22:39 Dose: 30 mg Pharmacy Consult (Zosyn Per Pharmacy*) 1 note FOLLOW UP .ZOSYN PER PHARMACY [facility] Pharmacy Consult (Vancomycin Per Pharmacy*) 1 note FOLLOW UP . PRN PRN Reason: PER PROTOCOL Pharmacy Profile Note (Vancomycin Trough Check) 1 note FOLLOW UP 1000 ONE Stop: 07/16/18 10:01 Potassium Chloride (Klor Con Er Tab*) 20 meq PO BID [facility] Last Admin: 07/15/18 08:20 Dose: 20 meq Vital Signs - 8 hr 07/15/18 07/15/18 07/15/18 07:43 08:00 08:01 Temperature 97.2 F Pulse Rate 88 88 Respiratory 18 19 14 Rate Blood Pressure 171/81 (mmHg) O2 Sat by Pulse 94 94 Oximetry 07/15/18 07/15/18 07/15/18 09:00 09:01 10:00 Temperature Pulse Rate 103 101 75 Respiratory 18 15 21 Rate Blood Pressure 172/83 (mmHg) O2 Sat by Pulse 95 95 94 Oximetry 07/15/18 07/15/18 07/15/18 10:02 11:00 11:01 Temperature Pulse Rate 74 87 85 Respiratory 11 17 13 Rate Blood Pressure 144/84 142/76 (mmHg) O2 Sat by Pulse 95 97 96 Oximetry 07/15/18 07/15/18 07/15/18 12:00 12:01 12:28 Temperature 99.0 F Pulse Rate 91 90 Respiratory 18 15 Rate Blood Pressure 159/80 (mmHg) O2 Sat by Pulse 95 95 Oximetry 07/15/18 13:22 Temperature 97.4 F Pulse Rate 93 Respiratory 16 Rate Blood Pressure 142/64 (mmHg) O2 Sat by Pulse 98 Oximetry Oxygen Devices in Use Now: None Result Diagrams: 07/15/18 08:50 07/15/18 08:50 Microbiology and Other Data: Microbiology 07/14/18 01:27 Nasal Screen MRSA (PCR) - Final Nasal Mrsa Not Detected 07/14/18 01:27 Influenza Types A,B Antigen - Final Nasopharyngeal Specimen received for Influenza A/B Molecular testing EKG Data: ekg ns no acute st t changes Assess/Plan/Problems-Billing Assessment: this is a 68 yr old wm with hx of type ii dm did not use his im inj of dm for two weeks presented to er with hyperosmolar diaetic keto acidosis ---> his f/s was 1100 ag is mildly elevated at 15. pt got lantus 10 units and humalog 12 units ---> will start insulin drip at this time his mental status now has coming back close to his baseline - Patient Problems (1) Sepsis due to pneumonia Current Visit: Yes Status: Acute Code(s): J18.9 - PNEUMONIA, UNSPECIFIED ORGANISM; A41.9 - SEPSIS, UNSPECIFIED ORGANISM SNOMED Code(s): 52223703 Comment: -Sepsis resolved -Likely cause of MS change, elevated lactic acid; Mental status today has resolved and pt fully oriented and alert on exam -Continue to hold opiate pain meds, Gabapentin, and Risperdal w/c may have made pt more prone for MS change -Continue Zosyn, Vanco, and Azithromycin---consider narrowing Abx regimen in AM if cultures continue to be negative and pt continues to clinically improve -Given recent contact with flu along with his S/S, will place pt on Tamiflu despite flu screen being negative -Continue watchful waiting -Likely induced hyperosmolar non-ketotic state, w/c has resolved yesterday -Legionella and S. pneumonia urine Ag (-) -Flu screen (-) -Blood Cx (-)x1 day (2) Type 2 diabetes, uncontrolled, with neuropathy Current Visit: Yes Status: Acute Code(s): E11.40 - TYPE 2 DIABETES MELLITUS WITH DIABETIC NEUROPATHY, UNSP; E11.65 - TYPE 2 DIABETES MELLITUS WITH HYPERGLYCEMIA SNOMED Code(s): 23575368 Comment: -Adjusted Insulin regimen -Continue watchful waiting (3) Hyperlipidemia Current Visit: Yes Status: Acute Code(s): E78.5 - HYPERLIPIDEMIA, UNSPECIFIED SNOMED Code(s): 57502342 Comment: -Continue Atorvastatin (4) Hypothyroid Current Visit: Yes Status: Acute Code(s): E03.9 - HYPOTHYROIDISM, UNSPECIFIED SNOMED Code(s): 59412923 Comment: -Continue Levothyroxine (5) DVT prophylaxis Current Visit: Yes Status: Acute Code(s): XFC6837 - SNOMED Code(s): 843626350 Comment: -Continue Heparin SQq8H Status and Disposition: -For ambulatory sats in AM -For possible D/C in 1-2 days
[2018-07-15] MEDS: oxyCODONE SR TAB(*) 15 MG TAB.SR PO PRN (19:57)
[2018-07-16] MEDS: NS 0.9% 1000 ML* 1,000 ML IV SCH ×2 (00:16→07:10)
[2018-07-16] MEDS: Piperacillin/Tazobac ADVAN(*) 3.375 GM in NS 0.9% 100 ML* 100 ML IVPB SCH (05:18)
[2018-07-16] MEDS: Insulin GLARGINE(*) 1 UNITS UNIT SUBCUT SCH (05:18)
[2018-07-16] MEDS: Heparin VIAL(*) 5000 UNITS/ML VIAL (FIVE THOUSAND) SUBCUT SCH ×3 (05:19→20:59)
[2018-07-16] MEDS: Levothyroxine TAB* 137 MCG TAB PO SCH (05:43)
[2018-07-16 06:25] LABS: Hematocrit 36 % (42-52); Hemoglobin 12.6 g/dl (14.0-18.0); Mean Corpuscular HGB Conc 35 g/dl (31-36); Mean Corpuscular Hemoglobin 34 pg (27-31); Mean Corpuscular Volume 95 fL (80-94); Mean Platelet Volume 9.5 fL (7.4-10.4); Platelet Count 143 10^3/ul (150-450); Red Blood Count 3.74 10^6/ul (4.00-5.40); Red Cell Distribution Width 12 % (10.5-15)
[2018-07-16 06:41] LABS: Albumin 2.9 g/dL (3.2-5.2); Albumin/Globulin Ratio 0.8 (1-3); BUN/Creatinine Ratio 11.7 (8-20); Calcium 8.1 mg/dL (8.6-10.3); EGFR Non-African American 101.1 (>60); Globulin 3.8 g/dL (2-4); Magnesium 1.8 mg/dL (1.9-2.7); Potassium 3.2 mmol/L (3.5-5.0); Total Bilirubin 0.9 mg/dL (0.2-1.0); Total Protein 6.7 g/dL (6.4-8.9)
--- NOTE | 2018-07-16 08:38 | PN ---
Subjective Date of Service: 07/16/18 Interval History: Has no complaints Wants to get up and walk but currently connected to many IVs Clarifies that he was not in contact or diagnosed with influenza Clarifies that he only missed 1 dose truclicity after dose increased and was not in stock at pharmacy Objective Active Medications: Allopurinol (Zyloprim Tab*) 100 mg PO DAILY [facility] Last Admin: 07/15/18 08:20 Dose: 100 mg Amitriptyline HCl (Elavil Tab*) 75 mg PO DAILY [facility] Last Admin: 07/15/18 08:20 Dose: 75 mg Amlodipine Besylate (Norvasc Tab*) 10 mg PO 0900 [facility] Last Admin: 07/15/18 08:19 Dose: 10 mg Aspirin (Aspirin Ec Tab*) 162 mg PO DAILY [facility] Last Admin: 07/15/18 08:19 Dose: 162 mg Atorvastatin Calcium (Lipitor*) 10 mg PO DAILY [facility] Last Admin: 07/15/18 08:20 Dose: 10 mg Azithromycin (Zithromax Tab*) 250 mg PO DAILY [facility] Stop: 07/18/18 09:01 Dextrose (D50w Syringe 50 Ml*) 12.5 gm IV PUSH .FOR FS < 60 - SS PRN PRN Reason: FS < 60 Heparin Sodium (Porcine) (Heparin Vial(*)) 5,000 units SUBCUT Q8HR [facility] Last Admin: 07/16/18 05:19 Dose: 5,000 units Ceftriaxone Sodium 1 gm/ (Sodium Chloride) 50 mls @ 200 mls/hr IVPB Q24H [facility] Potassium Phosphate 10 mmole/ (Sodium Chloride) 253.3333 mls @ 42 mls/hr IVPB ONCE ONE Stop: 07/16/18 14:33 Insulin Glargine (Lantus(*)) 16 units SUBCUT Q24H [facility] Last Admin: 07/16/18 05:18 Dose: 16 units Insulin Human Lispro (Humalog*) 6 units SUBCUT AC [facility] Last Admin: 07/15/18 17:05 Dose: 6 unit Insulin Human Lispro (Humalog*) 0 units SUBCUT ACHS [facility]; Protocol Last Admin: 07/15/18 21:50 Dose: 9 unit Levothyroxine Sodium (Synthroid Tab*) 137 mcg PO 0600 [facility] Last Admin: 07/16/18 05:43 Dose: 137 mcg Lisinopril (Prinivil Tab*) 10 mg PO DAILY [facility] Last Admin: 07/15/18 09:55 Dose: 10 mg Metformin HCl (Glucophage*) 1,000 mg PO BID WITH MEALS [facility] Metoprolol Tartrate (Lopressor Iv*) 5 mg IV Q6H PRN PRN Reason: BLOOD PRESSURE Last Admin: 07/15/18 09:55 Dose: 5 mg Nabumetone (Relafen Tab*) 500 mg PO DAILY [facility] Last Admin: 07/15/18 08:19 Dose: 500 mg Omeprazole (Prilosec Cap*) 20 mg PO DAILY [facility] Last Admin: 07/15/18 08:19 Dose: 20 mg Oseltamivir Phosphate (Tamiflu Cap*) 75 mg PO BID [facility] Stop: 07/19/18 09:59 Last Admin: 07/15/18 19:57 Dose: 75 mg Oxycodone HCl (Oxycontin(*)) 30 mg PO BID PRN PRN Reason: PAIN Last Admin: 07/15/18 19:57 Dose: 30 mg Potassium Chloride (Klor Con Er Tab*) 20 meq PO BID [facility] Last Admin: 07/15/18 19:57 Dose: 20 meq Vital Signs - 8 hr 07/16/18 07/16/18 03:46 07:30 Temperature 98.3 F 99.1 F Pulse Rate 80 82 Respiratory 18 14 Rate Blood Pressure 143/73 141/61 (mmHg) O2 Sat by Pulse 99 97 Oximetry Oxygen Devices in Use Now: None Appearance: lying flat, NAD Eyes: No Scleral Icterus Ears/Nose/Mouth/Throat: NL Teeth, Lips, Gums, Clear Oropharnyx Neck: NL Appearance and Movements; NL JVP, Trachea Midline Respiratory: Symmetrical Chest Expansion and Respiratory Effort, Clear to Auscultation Cardiovascular: NL Sounds; No Murmurs; No JVD, RRR Abdominal: NL Sounds; No Tenderness; No Distention, No Hepatosplenomegaly Lymphatic: No Cervical Adenopathy Extremities: No Edema Skin: No Rash or Ulcers Neurological: Alert and Oriented x 3 Result Diagrams: 07/16/18 05:57 07/16/18 05:57 Microbiology and Other Data: Microbiology 07/14/18 01:27 Nasal Screen MRSA (PCR) - Final Nasal Mrsa Not Detected 07/14/18 01:27 Influenza Types A,B Antigen - Final Nasopharyngeal Specimen received for Influenza A/B Molecular testing EKG Data: ekg ns no acute st t changes Assess/Plan/Problems-Billing Assessment: 68 yr old wm with hx of DM2 p/w hyperosmolar hyperglycemic state - Patient Problems (1) Uncontrolled type 2 DM with hyperosmolar nonketotic hyperglycemia Comment: HHS more likely than DKA (sig elevated glucose, nl bicarb and pH - although no ketones checked) Resolved with fluids and insulin c/w lantus and lispro restart metformin plan on discharging back on truclicitry but must confirm supply at pharmcy first stop NS replete phosphorous and potassium (2) Sepsis Comment: meets criteria by fever, WBC, HR and GLENN Blood cultures ordered but not drawn on arrival blood cultures now narrow abx to CTX and PO azithromycin sepsis now resolved (3) Pneumonia Comment: possible c/w CTX and azithro (4) GLENN (acute kidney injury) Comment: resolved (5) Hypertension Comment: norvasc (6) DVT prophylaxis Comment: -Continue Heparin SQq8H Status and Disposition: -For ambulatory sats in AM -For possible D/C in 1-2 days
[2018-07-16] MEDS: Aspirin EC TAB* 81 MG TAB.EC PO SCH (08:46)
[2018-07-16] MEDS: Atorvastatin* 10 MG TAB PO SCH (08:47)
[2018-07-16] MEDS: amLODIPine TAB* 5 MG PO SCH (08:47)
[2018-07-16] MEDS: Amitriptyline TAB* 25 MG PO SCH (08:47)
[2018-07-16] MEDS: Insulin LISPRO* 1 UNITS UNIT SUBCUT SCH ×7 (08:47→20:20)
[2018-07-16] MEDS: metFORMIN* 1,000 MG TAB PO SCH ×2 (08:47→17:02)
[2018-07-16] MEDS: Oseltamivir CAP* 75 MG CAP PO SCH ×2 (08:47→20:21)
[2018-07-16] MEDS: Potassium Chlor TAB* 20 MEQ TAB.ER PO SCH ×2 (08:47→20:21)
[2018-07-16] MEDS: Lisinopril TAB* 10 MG PO SCH (08:47)
[2018-07-16] MEDS: Omeprazole CAP* 20 MG PO SCH (08:47)
[2018-07-16] MEDS: Allopurinol TAB* 100 MG PO SCH (08:47)
[2018-07-16] MEDS ORDERED: Potassium Phosphate IV* 10 MMOLE in NS 0.9% 250 ML* 250 ML IVPB ONE (09:00)
[2018-07-16] MEDS ORDERED: Polyethylene Glycol 3350* 17 GM PACKET PO PRN (09:51)
[2018-07-16] MEDS ORDERED: Vancomycin Trough Check NOTE FOLLOW UP ONE (10:00)
[2018-07-16] MEDS: Nabumetone TAB* 500 MG PO SCH (10:06)
[2018-07-16] MEDS: cefTRIAXone(*) 1 GM in NS 0.9% 50 ML* 50 ML IVPB SCH (12:38)
[2018-07-16] MEDS: oxyCODONE SR TAB(*) 15 MG TAB.SR PO PRN ×2 (12:52→20:26)
[2018-07-16] MEDS: Azithromycin TAB* 250 MG PO SCH (14:53)
[2018-07-17] MEDS: Heparin VIAL(*) 5000 UNITS/ML VIAL (FIVE THOUSAND) SUBCUT SCH ×2 (05:26→15:41)
[2018-07-17] MEDS: Insulin GLARGINE(*) 1 UNITS UNIT SUBCUT SCH (05:27)
[2018-07-17] MEDS: Levothyroxine TAB* 137 MCG TAB PO SCH (05:27)
[2018-07-17 05:47] LABS: ABS Basophils 0.1 10^3/ul (0-0.2); ABS Eosinophils 0.3 10^3/ul (0-0.6); ABS Lymphocytes 2.8 10^3/ul (1.0-4.8); ABS Neutrophils 6.1 10^3/ul (1.5-7.7); ABS Nucleated RBC 0 10^3/ul; Eosinophil % 2.8 %; Hematocrit 34 % (42-52); Lymphocyte % 27.4 %; Mean Corpuscular HGB Conc 36 g/dl (31-36); Mean Corpuscular Hemoglobin 34 pg (27-31); Mean Corpuscular Volume 94 fL (80-94); Mean Platelet Volume 9.1 fL (7.4-10.4); Nucleated Red Blood Cells % 0; Platelet Count 146 10^3/ul (150-450); Red Blood Count 3.57 10^6/ul (4.00-5.40); Red Cell Distribution Width 12 % (10.5-15); White Blood Count 10.4 10^3/ul (3.5-10.8)
[2018-07-17 06:04] LABS: BUN/Creatinine Ratio 9.5 (8-20); Calcium 8.2 mg/dL (8.6-10.3); EGFR Non-African American 105.8 (>60); Phosphorus 2.8 mg/dL (2.5-5.0); Potassium 3.1 mmol/L (3.5-5.0)
[2018-07-17] MEDS: Insulin LISPRO* 1 UNITS UNIT SUBCUT SCH ×6 (07:53→17:04)
[2018-07-17] MEDS: Nabumetone TAB* 500 MG PO SCH (07:55)
[2018-07-17] MEDS: metFORMIN* 1,000 MG TAB PO SCH ×2 (07:55→17:04)
[2018-07-17] MEDS: Azithromycin TAB* 250 MG PO SCH (07:56)
[2018-07-17] MEDS: Aspirin EC TAB* 81 MG TAB.EC PO SCH (07:57)
[2018-07-17] MEDS: Lisinopril TAB* 10 MG PO SCH (07:57)
[2018-07-17] MEDS: amLODIPine TAB* 5 MG PO SCH (07:57)
[2018-07-17] MEDS: Allopurinol TAB* 100 MG PO SCH (07:58)
[2018-07-17] MEDS: Amitriptyline TAB* 25 MG PO SCH (07:58)
[2018-07-17] MEDS: Atorvastatin* 10 MG TAB PO SCH (07:59)
[2018-07-17] MEDS: Oseltamivir CAP* 75 MG CAP PO SCH (08:00)
[2018-07-17] MEDS: Potassium Chlor TAB* 20 MEQ TAB.ER PO SCH (08:00)
[2018-07-17] MEDS: Omeprazole CAP* 20 MG PO SCH (08:00)
[2018-07-17] MEDS ORDERED: Potassium Chlor TAB* 20 MEQ TAB.ER PO ONE (08:48)
[2018-07-17] MEDS: cefTRIAXone(*) 1 GM in NS 0.9% 50 ML* 50 ML IVPB SCH (12:37)
[2018-07-17 15:39] VITALS: BP 136/66
--- NOTE | 2018-07-18 13:51 | DS ---
CC: Michele Tracey II, MD * DISCHARGE SUMMARY: DATE OF ADMISSION: 07/13/18 DATE OF DISCHARGE: 07/17/18 PRIMARY CARE PROVIDER: Michele Tracey II, MD, fax is [phone]. PRIMARY DIAGNOSES: 1. Hyperosmolar hyperglycemia crisis. 2. Toxic encephalopathy. SECONDARY DIAGNOSES: 1. Probable pneumonia. 2. Type 2 diabetes. 3. Chronic lower back pain. 4. Chronic pain syndrome. 5. Morbid obesity. 6. Hyperlipidemia. 7. Hypothyroidism. 8. History of gout. MEDICATIONS AT DISCHARGE: Include: 1. Felodipine 10 mg daily. 2. Risperdal 0.5 mg twice daily. 3. Oxycodone 30 mg twice daily as needed. 4. Multivitamin 1 cap daily. 5. Levothyroxine 137 mcg daily. 6. Elavil 0.5 tabs daily, unknown dose. 7. Prilosec 20 mg daily. 8. Metformin 1000 mg twice daily. 9. Nabumetone 500 mg daily. 10. Gabapentin 400 mg at bedtime and 200 mg twice daily. 11. Allopurinol 100 mg daily. 12. Potassium chloride 20 mEq twice daily. 13. Atorvastatin 10 mg daily. 14. Aspirin 162 mg daily. 15. Amlodipine 10 mg daily. 16. Tamiflu 75 mg twice daily until complete. 17. Lisinopril 10 mg daily. 18. Trulicity 1.5 mg subcutaneously weekly to begin tomorrow. 19. Azithromycin 250 mg 1 tab tomorrow. 20. Augmentin 875 mg twice daily. PERTINENT IMAGING PERFORMED IN HOSPITAL STAY: Chest x-ray, impression: Low lung volume, small left basilar infiltrate. HISTORY OF PRESENT ILLNESS AND HOSPITAL COURSE: This is a 68-year-old man with past medical history as outlined in the history of present illness on the day of admission, who presented to the hospital confused with slurred speech. He was seen in the emergency room. He was found to have leukocytosis as well as lactic acid of 4.3 without fever as well as glucose of 1134, creatinine of 1.54 , anion gap of 15, pH of 7.4 on VBG. Although ketones were not checked, more likely the patient has hyperosmolar hyperglycemic crisis without DKA with minimal gap, carbon dioxide of 24, and normal limit pH on repeat VBG. The patient was treated with insulin drip as well as fluid and rapidly improved. The patient indicated that he is unable to obtain his Trulicity as the dose was changed. He may have just 1 or 2 weeks of that medication. Additionally, suspected pneumonia found on chest x-ray, which he was treated with vancomycin and azithromycin and Zosyn before narrowing to Augmentin on discharge. The patient's blood sugar was continued to be managed on long-acting Lantus and sliding scale lispro, we converted back to Trulicity on discharge. Long discussion was had with the patient regarding expeditious followup with primary care provider given the transition to Trulicity, which is not carried on formulary in the hospital. The patient is to continue checking his fingerstick at home, and if it is elevated, either return to the hospital or contact his PCP. The patient acknowledged understanding. Suspected underlying pneumonia exacerbated, uncontrolled diabetes especially given the . Hemoglobin A1c during the course of the hospital stay was 9.3. At followup, please; 1. Evaluate for continued management or control of diabetes after transition to Trulicity. 2. Evaluate for any evidence of continued pneumonia. 3. No other specific labs or vitals that need followup. Reasons to return to the hospital including, but not limited to recurrent or worsening symptoms, chest pain, shortness of breath, nausea, vomiting, lightheadedness, loss of consciousness, urinary frequency, or increased thirst discussed at length with the patient. He acknowledged understanding. TIME SPENT: Greater than 60 minutes was spent on the discharge of this patient , greater than half was spent [id number] with the patient. [id number]/[facility] #: [id number] KENISHA
== END 2018-07-17 17:40 | disposition home or self-care (01) | DRG 871 ==
LOC: ED 21:51 → ICU 07-14 00:42 → MEDTELE 07-15 13:04
PROVIDERS: ADMIT Internal Medicine; ATTEND Internal Medicine
DX: A41.9 Sepsis, unspecified organism (principal); E11.00 Type 2 diabetes mellitus with hyperosmolarity without nonketotic hyperglycemic-hyperosmolar coma (NKHHC); G92 Toxic encephalopathy; J18.9 Pneumonia, unspecified organism; N17.9 Acute kidney failure, unspecified; E87.2 Acidosis; E11.42 Type 2 diabetes mellitus with diabetic polyneuropathy; E66.01 Morbid (severe) obesity due to excess calories; M54.5 Low back pain; G89.4 Chronic pain syndrome; E78.5 Hyperlipidemia, unspecified; E03.9 Hypothyroidism, unspecified; F17.210 Nicotine dependence, cigarettes, uncomplicated; Z68.29 Body mass index [BMI] 29.0-29.9, adult; Z79.01 Long term (current) use of anticoagulants; Z79.4 Long term (current) use of insulin; Z79.899 Other long term (current) drug therapy
CPT/HCPCS: 36415; 70450; 71045; 80048; 80053; 80061; 80307; 80320; 81003; 82803; 82947; 83036; 83605; 83690; 83735; 84100; 84443; 84484; 85025; 85027; 87040; 87641; 87899; 93005; 93880; 99284; A9270-GY; G0480; J0456; J0696; J1644; J1815; J2543; J3370; J3490

== ENCOUNTER 2019-08-09 23:23 | Inpatient (IN) | payer MEDICARE, BC ==
--- NOTE | 2019-08-09 23:58 | ED ---
Complex/Multi-Sys Presentation - HPI Summary HPI Summary: Patient is a 69 y/o M presenting to the ED for a chief complaint of generalized weakness after a fall at home on the night of 08/08/19. Patient is present with his daughter. Before the fall, patient states he was feeling weak. Patient denies a LOC during the fall and he was able to crawl into his bed after the fall. Patient lives with his daughters who did not witness the fall. His daughter states that the patient is not "coherent" which is not typical for him. Patient does not have a fever. Patient had another fall a few weeks ago for which he is scheduled to follow up with his PCP. PMHx is significant for DM for which he does not take medications. Patient denies tobacco or alcohol use. He uses a walker to ambulate. - History Of Current Complaint Chief Complaint: EDGeneral Time Seen by Provider: 08/09/19 23:48 Hx Obtained From: Patient Onset/Duration: Sudden Onset, Still Present Timing: Constant Severity Currently: Moderate Severity Initially: Moderate Associated Signs And Symptoms: Positive: Weakness - Generalized, Other - Positive "incoherent". Negative: Syncope - LOC - Allergies/Home Medications Allergies/Adverse Reactions: Allergies Allergy/AdvReac Type Severity Reaction Status Date / Time pregabalin [From Lyrica] AdvReac Unknown Edema Verified 07/13/18 21:59 PMH/Surg Hx/FS Hx/Imm Hx Previously Healthy: Yes Endocrine/Hematology History: Reports: Hx Diabetes, Hx Thyroid Disease Cardiovascular History: Reports: Hx Hypertension Respiratory History: Denies: Hx Asthma, Hx Chronic Obstructive Pulmonary Disease (COPD) GI History: Reports: Hx Gastroesophageal Reflux Disease, Hx Ulcer - gerd Musculoskeletal History: Reports: Hx Back Problems, Hx Gout - Right Foot, Other Musculoskeletal History - Chronic back and shoulder pain Sensory History: Reports: Hx Contacts or Glasses Denies: Hx Legally Blind, Hx Deafness, Hx Hearing Aid Opthamlomology History: Reports: Hx Contacts or Glasses Denies: Hx Legally Blind EENT History: Denies: Hx Deafness - Surgical History Surgical History: Yes Surgery Procedure, Year, and Place: Left Shoulder x2; Right Knee; Back; Lithotripsy Infectious Disease History: No Infectious Disease History: Denies: Hx Clostridium Difficile, Hx Hepatitis, Hx Human Immunodeficiency Virus (HIV), Hx of Known/Suspected MRSA, Hx Shingles, Hx Tuberculosis - hx pos TB test, treated, never had disease, Hx Known/Suspected VRE, Hx Known/Suspected VRSA, History Other Infectious Disease, Traveled Outside the [place] in Last 30 Days - Family History Known Family History: Positive: Cardiac Disease - AFIB. Paternal uncles dec from Cardiac c/o, Other - Mother - stents - Social History Occupation: Retired Lives: With Family Alcohol Use: None Hx Substance Use: No Substance Use Type: Reports: None Hx Tobacco Use: Yes Smoking Status (MU): Former Smoker Type: Cigarettes Review of Systems Negative: Fever Neurological: Other - Positive "incoherent" Positive: Weakness - Generalized. Negative: Syncope - LOC All Other Systems Reviewed And Are Negative: Yes Physical Exam - Summary Physical Exam Summary: Appearance: Ill-appearing male lying in bed comfortably, in no respiratory distress. Skin: Warm, dry, no obvious rash Eyes: sclera anicteric, no conjunctival pallor ENT: mucous membranes moist, pharynx appears normal Neck: Supple, nontender Respiratory: Clear to auscultation, no signs of respiratory distress Cardiovascular: Normal S1, S2. No murmurs. Normal distal pulses in tibial and radial bilaterally. Abdomen: Nontender, normal active bowel sounds present, very firm RUQ that tapers off as it is followed laterally, not sure if this is a discrete mass or an enlarged lobe of the liver. Musculoskeletal: Normal, Strength/ROM Intact Neurological: A&Ox3, awake and alert, mentation is normal, speech is fluent and appropriate Psychiatric: affect is normal, does not appear anxious or depressed Triage Information Reviewed: Yes Vital Signs On Initial Exam: Initial Vitals Temp Pulse Resp BP Pulse Ox 97.1 F 94 18 105/71 98 08/09/19 23:30 08/09/19 23:30 08/09/19 23:30 08/09/19 23:30 08/09/19 23:30 Vital Signs Reviewed: Yes Procedures - Sedation Patient Received Moderate/Deep Sedation with Procedure: No Diagnostics - Vital Signs Vital Signs Temp Pulse Resp BP Pulse Ox 08/09/19 23:30 97.1 F 94 18 105/71 98 - Laboratory Result Diagrams: 08/10/19 00:03 08/10/19 00:03 Lab Statement: Any lab studies that have been ordered have been reviewed, and results considered in the medical decision making process. - Radiology Abdomen US Radiology Interpretation Completed By: Radiologist Summary of Radiographic Findings: Abdomen US IMPRESSION: 1. Enlarged, heterogeneous liver with focal fatty infiltration. 2. Gallbladder hydrops. 3. Gallbladder sludge. 4. Mildly dilated common bile duct. Reviewed by Dr. Menard. - EKG 00:53 Cardiac Rate: NL - 86 BPM EKG Rhythm: Sinus Rhythm ST Segment: Normal Ectopy: None Summary of EKG Findings: EKG at 00:53 shows NSR at 86 BPM, P waves, QRS complex , and T waves are within normal limits, T waves and intervals are normal, no ischemic changes, no STEMI. This is a normal EKG. Reviewed and interpreted by Dr. Menard. Complex Multi-Symp Course/Dx Course Of Treatment: Patient is a 69 y/o M presenting to the ED for a chief complaint of generalized weakness after a fall at home on the night of . Patient is present with his daughter. Before the fall, patient states he was feeling weak. Patient denies a LOC during the fall and he was able to crawl into his bed after the fall. Patient lives with his daughters who did not witness the fall. His daughter states that the patient is not "coherent" which is not typical for him. Patient does not have a fever. Patient had another fall a few weeks ago for which he is scheduled to follow up with his PCP. PMHx is significant for DM for which he does not take medications. Patient denies tobacco or alcohol use. He uses a walker to ambulate. On exam, ill-appearing man lying in the stretcher in no respiratory distress, very firm RUQ that tapers off as it is followed laterally, not sure if this is a discrete mass or an enlarged lobe of the liver. In the ED course, patient was given IV fluids. Laboratory abnormal findings: WBC 11.5, RBC 4.07, Hct 41, MCV 101, MCH 35, absolute neuts 8.2, absolute monos 1.1, VBG pH 7.44, VBG pO2 53, VBG HCO3 29, VBG O2 saturation 89.1, VBG base excess 5.6, sodium 131, chloride 89, anion gap 17, creatinine 1.2, glucose 906, POC glucose >444, lactic acid 3.8, calcium 10.8 , alkaline phosphatase 109, CRP 13.5, urine specific gravity 1.031, urine ketones trace, urine glucose 3+. EKG at 00:53 shows NSR at 86 BPM, P waves, QRS complex, and T waves are within normal limits, T waves and intervals are normal, no ischemic changes, no STEMI. This is a normal EKG. Abdomen US IMPRESSION: 1. Enlarged, heterogeneous liver with focal fatty infiltration. 2. Gallbladder hydrops. 3. Gallbladder sludge. 4. Mildly dilated common bile duct. At 01:09, Dr. Robina Turner agrees to admit the patient to [facility] with a diagnosis of hyperosmolar non-ketotic hyperglycemia. Patient will be admitted to [facility] with a diagnosis of hyperosmolar non-ketotic hyperglycemia. - Diagnoses Provider Diagnoses: Diabetic hyperosmolar non-ketotic state, Hyperglycemia - Physician Notifications Discussed Care Of Patient With: Robina Turner - At 01:09, Dr. Robina Turner agrees to admit the patient to [facility] with a diagnosis of hyperosmolar non-ketotic hyperglycemia. Time Discussed With Above Provider: 01:09 Instructed by Provider To: Admit As Inpatient Discharge ED - Sign-Out/Discharge Documenting (check all that apply): Patient Departure - Admit - Discharge Plan Condition: Guarded Disposition: ADMITTED TO [facility] - Billing Disposition and Condition Condition: GUARDED Disposition: Admitted to [facility] - Attestation Statements Document Initiated by Tara: Yes Documenting Scribe: Sandrita Licona Provider For Whom Tara is Documenting (Include Credential): Mika Menard MD Scribe Attestation: Sandrita Cantor, scribed for Mika Menard MD on 08/10/19 at 0221. Scribe Documentation Reviewed: Yes Provider Attestation: The documentation as recorded by the Sandrita nieto accurately reflects the service I personally performed and the decisions made by me, Mika Menard MD Status of Scribe Document: Viewed
[2019-08-10 00:16] LABS: ABS Basophils 0.1 10^3/ul (0-0.2); ABS Lymphocytes 2.1 10^3/ul (1.0-4.8); ABS Monocytes 1.1 10^3/ul (0-0.8); ABS Neutrophils 8.2 10^3/ul (1.5-7.7); Eosinophil % 0.1 %; Hematocrit 41 % (42-52); Hemoglobin 14.2 g/dL (14.0-18.0); Lymphocyte % 18.1 %; Mean Corpuscular HGB Conc 35 g/dL (31-36); Mean Corpuscular Hemoglobin 35 pg (27-31); Mean Corpuscular Volume 101 fL (80-94); Mean Platelet Volume 10.3 fL (7.4-10.4); Nucleated Red Blood Cells % 0.1; Platelet Count 178 10^3/uL (150-450); Red Blood Count 4.07 10^6 /uL (4.18-5.48); Red Cell Distribution Width 12 % (10-15); White Blood Count 11.5 10^3/uL (3.5-10.8)
[2019-08-10 00:29] LABS: Albumin 4.2 g/dL (3.2-5.2); Albumin/Globulin Ratio 1.1 (1-3); BUN/Creatinine Ratio 12.3 (8-20); C Reactive Protein 13.56 mg/L (<8.01); Calcium 10.8 mg/dL (8.6-10.3); EGFR African American 66.6 (>60); EGFR Non-African American 55.1 (>60); Total Bilirubin 0.9 mg/dL (0.2-1.0); Total Protein 8.2 g/dL (6.4-8.9)
[2019-08-10] MEDS: NS 0.9% 1000 ML** 3,000 ML IV ONE ×3 (00:59→02:17)
[2019-08-10] MEDS ORDERED: Al Hydrox/Mg Hydrox/Simet LIQ* 30 ML UDC PO PRN (01:09)
[2019-08-10] MEDS: Insulin Infusion 100unit/100mL 100 UNIT/100 ML BAG IV ONE ×2 (01:40→10:55)
[2019-08-10 01:41] LABS: Urine Appearance Clear; Urine Bilirubin Negative (Negative); Urine Blood Negative (Negative); Urine Color Straw; Urine Glucose 3+(>=500 mg/dL) (Negative); Urine Ketones Trace (Negative); Urine Nitrite Negative (Negative); Urine Protein Negative (Negative); Urine Specific Gravity 1.031 (1.010-1.030); Urine Urobilinogen Negative (Negative)
[2019-08-10] MEDS: Enoxaparin(*) 40 MG/0.4 ML SYR SUBCUT SCH (03:05)
[2019-08-10 03:08] LABS: Influenza A Molecular NEGATIVE (Negative); Influenza B Molecular NEGATIVE (Negative)
[2019-08-10 03:34] LABS: Troponin I 0.01 ng/mL (<0.03)
[2019-08-10] MEDS: NS 0.9% 1000 ML** 1,000 ML IV SCH ×2 (03:56→08:45)
--- NOTE | 2019-08-10 04:34 | HP ---
CC: Dr. Michele Tracey * HISTORY AND PHYSICAL: DATE OF ADMISSION: 08/10/19 TIME OF ADMISSION: 1:45 a.m. PRIMARY CARE PHYSICIAN: Dr. Michele Tracey. CHIEF COMPLAINT: Falls. HISTORY OF PRESENT ILLNESS: This is a 69-year-old man with history of diabetes, gout, chronic pain, who presented to the emergency department with his daughter , who noticed that he has been falling over the past couple of weeks. Mr. Dumont is able to give a partial history, but falls asleep often and completes his sentences with unclear answers, so his daughter, Elvira, fills in the blanks. He explains he generally has been feeling unwell for a few weeks. He though it was from diffuse muscle spasm and has been causing him to fall. The first fall was several weeks ago, and then his daughter, Elvira, went away for one night yesterday and he has fallen again and that is what made them to decide to bring him in today. He has been making less sense than usual when he speaks and at baseline, he is completely independent, manages all of his own medications, drives to his own doctor's appointments, etc. Elvira also adds that she notices he has been drinking large volumes of orange juice lately. PAST MEDICAL HISTORY: Type 2 diabetes, chronic pain syndrome, hyperlipidemia, hypothyroid, gout. MEDICATIONS: Home medications: Unfortunately, Mr. Dumont is not able to list his medications for me and his family does not know them either. I have a discharge summary from a year ago and he and his family do not think they have changed since that time, however, I cannot confirm that. SOCIAL HISTORY: He lives with his daughter, Elvira, but is independent. He does not smoke cigarettes. He drinks an occasional [employer]ers and uses no other drugs. REVIEW OF SYSTEMS: He denies chest pain, shortness of breath, headache, nausea , vomiting, constipation, diarrhea. He does admit to thirst. He reports that he has been able to eat and drink over the past couple of days and has had access to food and water. He initially states that he does take his diabetes medications, but then admits that he ran out of them this week. He usually takes his Trulicity on Tuesdays, so he has not had it for at least 9 days. It is unclear if he had it last Tuesday or not. Again, his daughter does not monitor his medications at all, so we do not have collateral about how well he has been taking his medications at home. PHYSICAL EXAMINATION GENERAL: Sleepy, thin man, who is in no distress and appears older than stated age. He alerts to voice and answers my questions pleasantly, but occasionally nonsensibly. For example, when I ask him what kind of numbers he gets when he checks his blood sugar at home, he states 3 or 4, but otherwise, answers mostly appropriately. VITAL SIGNS: Temperature 97.1, heart rate 94, respiratory rate 18, pulse ox 98 % on room air, blood pressure 105/71. HEENT: Pupils are equal, round, and reactive to light. No nystagmus. Oral mucosa is extremely dry and the pharynx is erythematous. NECK: No JVP or adenopathy. No nuchal rigidity. LUNGS: His lungs are clear bilaterally. CHEST: He is in a regular rate and rhythm with no murmurs. ABDOMEN: Abdomen is distended, nontender. His liver as palpable below the costal margin. EXTREMITIES: No edema, rashes, or ulcers. NEUROLOGIC: He has no pronator drift. His strength is 5/5 in all extremities. He is forgetful and has poor concentration. DIAGNOSTIC STUDIES/LAB DATA: White blood cell count of 11.5, hemoglobin 14.2, platelets 178. Venous blood gas 7.44/45/53/29. Sodium 131, potassium 5.0, chloride 89, bicarb 25, anion gap 17, BUN 16, creatinine 1.3, glucose 906, lactic acid 3.8, calcium 10.8. CRP is 13.56. The only imaging that has been done in the emergency department is an abdominal ultrasound. The result is pending. ASSESSMENT AND PLAN: This is a 69-year-old man with history of diabetes, who presents to the emergency room with several weeks of falls and confusion. In the emergency department, he was found to have a blood sugar of 906. 1. Hyperosmolar hyperglycemic state versus mild Diabetic ketoacidosis. Mr. Dumont's hemoglobin A1c is 13.8 suggesting poor baseline control, however, I am suspicious of an infectious ischemic or medication related effect that has caused this decompensation. To work this up, I am getting a chest x-ray, a urinalysis, and a flu swab. I am also getting a CT of his brain to rule out a stroke or a bleed. To treat the hyperosmolar hyperglycemic state, he is currently starting an insulin drip at 0.1 unit per kg per hour. I will check q.4 BMP. He has not yet received 1 L of fluid and needs more aggressive IV fluid resuscitation. I will give him a liter wide open of normal saline now, he is likely many more liters deplete. I am putting him on q.1 fingerstick and admitting him to the ICU. Certainly, medication adherence is contributing to this as he has ran out of his medications and his A1c is 13.8 suggesting that he has been out of them for longer than he thinks, however, I believe it is prudent to rule out other etiologies of this decompensation. 2. Falls. I am suspicious this is related to volume depletion and hyperglycemia, but we will also check a CT of the brain to rule out stroke or bleed. 3. Lactic acidosis. I suspect that this is related to severe volume depletion. He otherwise does not appear to be septic and does not have a localizing source. I am giving him volume resuscitation along with the insulin drip and we will recheck his lactic acid. 4. Hypercalcemia. Again, I suspect this is related to severe volume depletion and we will recheck it in the morning. 5. Acute kidney injury, again likely related to volume depletion and hyperglycemia. Replete volume aggressively and recheck renal function. 6. Hepatomegaly, incidentally noted on exam in the emergency department. A liver ultrasound is pending. This will need to be followed up in the morning. 7. Inaccurate medication list. Please note that his medications were unable to be reconciled this evening as neither he nor his family know what he takes and he has not been here for over a year and we have no primary care records. This will need to be reconciled in the morning. 8. DVT prophylaxis. Start Lovenox once his CT brain comes back and rules out a bleed. 9. Code status is full. Person to notify is his daughter, Elvira. [id number]/[facility] #: [id number] MTDD
[2019-08-10 04:36] LABS: Troponin I 0.01 ng/mL (<0.03)
[2019-08-10 05:01] LABS: BUN/Creatinine Ratio 12.7 (8-20); Calcium 9.5 mg/dL (8.6-10.3); EGFR African American 74.5 (>60); EGFR Non-African American 61.6 (>60); Potassium 3.7 mmol/L (3.5-5.0)
[2019-08-10] MEDS ORDERED: KCL 20 MEQ/100 ML IVPREMIX* 20 MEQ/100 ML BAG IV ONE (05:08)
[2019-08-10] MEDS: Levothyroxine TAB* 137 MCG TAB PO SCH (05:49)
[2019-08-10 06:29] LABS: ABS Basophils 0.1 10^3/ul (0-0.2); ABS Lymphocytes 3.3 10^3/ul (1.0-4.8); ABS Monocytes 1.5 10^3/ul (0-0.8); ABS Neutrophils 6.9 10^3/ul (1.5-7.7); Eosinophil % 0.2 %; Hematocrit 36 % (42-52); Hemoglobin 12.6 g/dL (14.0-18.0); Lymphocyte % 28.2 %; Mean Corpuscular HGB Conc 35 g/dL (31-36); Mean Corpuscular Hemoglobin 35 pg (27-31); Mean Corpuscular Volume 98 fL (80-94); Mean Platelet Volume 9.7 fL (7.4-10.4); Nucleated Red Blood Cells % 0.2; Platelet Count 146 10^3/uL (150-450); Red Blood Count 3.64 10^6 /uL (4.18-5.48); Red Cell Distribution Width 13 % (10-15); White Blood Count 11.9 10^3/uL (3.5-10.8)
[2019-08-10 06:39] LABS: BUN/Creatinine Ratio 12.5 (8-20); Calcium 9.5 mg/dL (8.6-10.3); EGFR African American 86.2 (>60); EGFR Non-African American 71.2 (>60); Potassium 3.6 mmol/L (3.5-5.0)
[2019-08-10] MEDS: Gabapentin CAP(*) 100 MG PO SCH ×2 (08:44→20:47)
[2019-08-10] MEDS: Lisinopril TAB* 10 MG PO SCH (08:45)
[2019-08-10] MEDS: Allopurinol TAB* 100 MG PO SCH (08:45)
[2019-08-10] MEDS ORDERED: NS 0.9% 1000 ML** 1,000 ML IV SCH (10:00)
[2019-08-10] MEDS ORDERED: Insulin Infusion 100unit/100mL 100 UNIT/100 ML BAG IV SCH (12:00)
[2019-08-10] MEDS ORDERED: D5W 1/2 NS KCl 20 Meq 1000 ML* 1,000 ML IV SCH (12:30)
[2019-08-10 12:34] LABS: BUN/Creatinine Ratio 12.5 (8-20); EGFR African American 104.5 (>60); EGFR Non-African American 86.4 (>60)
[2019-08-10] MEDS ORDERED: Dextrose 50% Syringe 50 ML* 25 GM/50 ML SYRINGE IV PUSH PRN (13:12)
[2019-08-10] MEDS ORDERED: Insulin GLARGINE(*) 1 UNITS UNIT SUBCUT SCH (15:00)
[2019-08-10] MEDS: Insulin LISPRO* 1 UNITS UNIT SUBCUT SCH ×3 (15:02→21:50)
[2019-08-10] MEDS: KCL 10 MEQ/50 ML IVPREMIX* 10 MEQ/50 ML BAG IV SCH ×2 (15:02→16:15)
--- NOTE | 2019-08-10 15:53 | PN ---
Date of Service: 08/10/19 Critical Care Services: Patient seen and examined. Initially still on insulin drip. GAP closed but had uptick in fingerstick and low potassium on BMP. Remained on drip with additional fluids throughout the day with adjustments per DKA/HHS protocol. Patient states he feels tired, but denies acute pain, no SOB, no headache or fevers, no nausea or abdominal pain. Daughter and CDE at bedside during exam. Vital Signs: Temp Pulse Resp BP SpO2 FiO2 97.3 F 77 23 112/61 94 08/10/19 12:00 08/10/19 15:00 08/10/19 15:34 08/10/19 15:00 08/10/19 15:00 Physical Exam: Gen: Alert, NAD HEENT: PERRLA, non-icteric sclera Lungs: Clear bilaterally with no adventitious breath sounds Cardiac: +S1S2, regular, no murmurs or rubs Abdomen: non-tender, no distended Extremities: no edema or clubbing<2 sec cap refill Neuro: A&Ox3, no focal deficits Fluid Balance (Past 24 Hours): I= O= Net Intake & Output 08/08/19 08/09/19 08/10/19 08/11/19 06:59 06:59 06:59 06:59 Intake Total 1947 3343 Output Total 500 950 Balance 1447 2393 Weight 197 lb 5.019 oz Intake: IV Fluids 474 1517 D5W 1/2 NS 20 meq KCL 336 KCL 18 81 NS (0.9%) 456 1100 Medicated IV 33 56 CC - Insulin 33 56 Oral 1440 1770 Output: Urine 500 950 Labs: Laboratory Results - last 24 hr 08/09/19 08/09/19 08/09/19 23:38 23:54 23:54 WBC RBC Hgb Hct MCV MCH MCHC RDW Plt Count MPV Neut % (Auto) Lymph % (Auto) Whitman % (Auto) Eos % (Auto) Baso % (Auto) Absolute Neuts (auto) Absolute Lymphs (auto) Absolute Monos (auto) Absolute Eos (auto) Absolute Basos (auto) Absolute Nucleated RBC Nucleated RBC % VBG pH 7.44 H VBG pCO2 45 VBG pO2 53.0 H VBG HCO3 29.0 H VBG O2 Saturation 89.1 H VBG Base Excess 5.6 H Sodium Potassium Chloride Carbon Dioxide Anion Gap BUN Creatinine Est GFR ( Amer) Est GFR (Non-Af Amer) BUN/Creatinine Ratio Glucose POC Glucose (mg/dL) > 444 H* Glucose Meter Confirm Hemoglobin A1c 13.8 H Lactic Acid Calcium Total Bilirubin AST ALT Alkaline Phosphatase Troponin I C-Reactive Protein Total Protein Albumin Globulin Albumin/Globulin Ratio Urine Color Urine Appearance Urine pH Ur Specific [place] Urine Protein Urine Ketones Urine Blood Urine Nitrate Urine Bilirubin Urine Urobilinogen Ur Leukocyte Esterase Urine Glucose Influenza A (Rapid) Influenza B (Rapid) 08/10/19 08/10/19 08/10/19 00:03 00:03 00:03 WBC 11.5 H RBC 4.07 L Hgb 14.2 Hct 41 L MCV 101 H MCH 35 H MCHC 35 RDW 12 Plt Count 178 MPV 10.3 Neut % (Auto) 71.8 Lymph % (Auto) 18.1 Whitman % (Auto) 9.5 Eos % (Auto) 0.1 Baso % (Auto) 0.5 Absolute Neuts (auto) 8.2 H Absolute Lymphs (auto) 2.1 Absolute Monos (auto) 1.1 H Absolute Eos (auto) 0.0 Absolute Basos (auto) 0.1 Absolute Nucleated RBC 0.0 Nucleated RBC % 0.1 VBG pH VBG pCO2 VBG pO2 VBG HCO3 VBG O2 Saturation VBG Base Excess Sodium 131 L Potassium 5.0 Chloride 89 L Carbon Dioxide 25 Anion Gap 17 H BUN 16 Creatinine 1.30 H Est GFR ( Amer) 66.6 Est GFR (Non-Af Amer) 55.1 BUN/Creatinine Ratio 12.3 Glucose 906 H* POC Glucose (mg/dL) Glucose Meter Confirm Hemoglobin A1c Lactic Acid 3.8 H* Calcium 10.8 H Total Bilirubin 0.90 AST 26 ALT 26 Alkaline Phosphatase 109 H Troponin I C-Reactive Protein 13.56 H Total Protein 8.2 Albumin 4.2 Globulin 4.0 Albumin/Globulin Ratio 1.1 Urine Color Urine Appearance Urine pH Ur Specific [place] Urine Protein Urine Ketones Urine Blood Urine Nitrate Urine Bilirubin Urine Urobilinogen Ur Leukocyte Esterase Urine Glucose Influenza A (Rapid) Influenza B (Rapid) 08/10/19 08/10/19 08/10/19 01:10 02:40 02:50 WBC RBC Hgb Hct MCV MCH MCHC RDW Plt Count MPV Neut % (Auto) Lymph % (Auto) Whitman % (Auto) Eos % (Auto) Baso % (Auto) Absolute Neuts (auto) Absolute Lymphs (auto) Absolute Monos (auto) Absolute Eos (auto) Absolute Basos (auto) Absolute Nucleated RBC Nucleated RBC % VBG pH VBG pCO2 VBG pO2 VBG HCO3 VBG O2 Saturation VBG Base Excess Sodium Potassium Chloride Carbon Dioxide Anion Gap BUN Creatinine Est GFR ( Amer) Est GFR (Non-Af Amer) BUN/Creatinine Ratio Glucose POC Glucose (mg/dL) Glucose Meter Confirm 653 H* Hemoglobin A1c Lactic Acid Calcium Total Bilirubin AST ALT Alkaline Phosphatase Troponin I 0.01 C-Reactive Protein Total Protein Albumin Globulin Albumin/Globulin Ratio Urine Color Straw Urine Appearance Clear Urine pH 6.0 Ur Specific [place] 1.031 H Urine Protein Negative Urine Ketones Trace A Urine Blood Negative Urine Nitrate Negative Urine Bilirubin Negative Urine Urobilinogen Negative Ur Leukocyte Esterase Negative Urine Glucose 3+(>=500 mg/dl) A Influenza A (Rapid) Negative Influenza B (Rapid) Negative 08/10/19 08/10/19 08/10/19 02:51 04:00 04:08 WBC RBC Hgb Hct MCV MCH MCHC RDW Plt Count MPV Neut % (Auto) Lymph % (Auto) Whitman % (Auto) Eos % (Auto) Baso % (Auto) Absolute Neuts (auto) Absolute Lymphs (auto) Absolute Monos (auto) Absolute Eos (auto) Absolute Basos (auto) Absolute Nucleated RBC Nucleated RBC % VBG pH VBG pCO2 VBG pO2 VBG HCO3 VBG O2 Saturation VBG Base Excess Sodium 136 Potassium 3.7 Chloride 97 L Carbon Dioxide 25 Anion Gap 14 H BUN 15 Creatinine 1.18 H Est GFR ( Amer) 74.5 Est GFR (Non-Af Amer) 61.6 BUN/Creatinine Ratio 12.7 Glucose 483 H POC Glucose (mg/dL) > 444 H* > 444 H* Glucose Meter Confirm 496 H Hemoglobin A1c Lactic Acid Calcium 9.5 Total Bilirubin AST ALT Alkaline Phosphatase Troponin I 0.01 C-Reactive Protein Total Protein Albumin Globulin Albumin/Globulin Ratio Urine Color Urine Appearance Urine pH Ur Specific [place] Urine Protein Urine Ketones Urine Blood Urine Nitrate Urine Bilirubin Urine Urobilinogen Ur Leukocyte Esterase Urine Glucose Influenza A (Rapid) Influenza B (Rapid) 08/10/19 08/10/19 08/10/19 05:11 05:58 06:10 WBC RBC Hgb Hct MCV MCH MCHC RDW Plt Count MPV Neut % (Auto) Lymph % (Auto) Whitman % (Auto) Eos % (Auto) Baso % (Auto) Absolute Neuts (auto) Absolute Lymphs (auto) Absolute Monos (auto) Absolute Eos (auto) Absolute Basos (auto) Absolute Nucleated RBC Nucleated RBC % VBG pH VBG pCO2 VBG pO2 VBG HCO3 VBG O2 Saturation VBG Base Excess Sodium 137 Potassium 3.6 Chloride 99 L Carbon Dioxide 28 Anion Gap 10 BUN 13 Creatinine 1.04 Est GFR ( Amer) 86.2 Est GFR (Non-Af Amer) 71.2 BUN/Creatinine Ratio 12.5 Glucose 335 H POC Glucose (mg/dL) 433 H* 272 H Glucose Meter Confirm Hemoglobin A1c Lactic Acid Calcium 9.5 Total Bilirubin AST ALT Alkaline Phosphatase Troponin I C-Reactive Protein Total Protein Albumin Globulin Albumin/Globulin Ratio Urine Color Urine Appearance Urine pH Ur Specific [place] Urine Protein Urine Ketones Urine Blood Urine Nitrate Urine Bilirubin Urine Urobilinogen Ur Leukocyte Esterase Urine Glucose Influenza A (Rapid) Influenza B (Rapid) 08/10/19 08/10/19 08/10/19 06:10 06:10 06:56 WBC 11.9 H RBC 3.64 L Hgb 12.6 L Hct 36 L MCV 98 H MCH 35 H MCHC 35 RDW 13 Plt Count 146 L MPV 9.7 Neut % (Auto) 58.3 Lymph % (Auto) 28.2 Whitman % (Auto) 12.3 Eos % (Auto) 0.2 Baso % (Auto) 1.0 Absolute Neuts (auto) 6.9 Absolute Lymphs (auto) 3.3 Absolute Monos (auto) 1.5 H Absolute Eos (auto) 0.0 Absolute Basos (auto) 0.1 Absolute Nucleated RBC 0.0 Nucleated RBC % 0.2 VBG pH VBG pCO2 VBG pO2 VBG HCO3 VBG O2 Saturation VBG Base Excess Sodium Potassium Chloride Carbon Dioxide Anion Gap BUN Creatinine Est GFR ( Amer) Est GFR (Non-Af Amer) BUN/Creatinine Ratio Glucose POC Glucose (mg/dL) 311 H Glucose Meter Confirm Hemoglobin A1c Lactic Acid 2.5 H* Calcium Total Bilirubin AST ALT Alkaline Phosphatase Troponin I C-Reactive Protein Total Protein Albumin Globulin Albumin/Globulin Ratio Urine Color Urine Appearance Urine pH Ur Specific [place] Urine Protein Urine Ketones Urine Blood Urine Nitrate Urine Bilirubin Urine Urobilinogen Ur Leukocyte Esterase Urine Glucose Influenza A (Rapid) Influenza B (Rapid) 08/10/19 08/10/19 08/10/19 08:00 08:03 09:01 WBC RBC Hgb Hct MCV MCH MCHC RDW Plt Count MPV Neut % (Auto) Lymph % (Auto) Whitman % (Auto) Eos % (Auto) Baso % (Auto) Absolute Neuts (auto) Absolute Lymphs (auto) Absolute Monos (auto) Absolute Eos (auto) Absolute Basos (auto) Absolute Nucleated RBC Nucleated RBC % VBG pH VBG pCO2 VBG pO2 VBG HCO3 VBG O2 Saturation VBG Base Excess Sodium Potassium Chloride Carbon Dioxide Anion Gap BUN Creatinine Est GFR ( Amer) Est GFR (Non-Af Amer) BUN/Creatinine Ratio Glucose POC Glucose (mg/dL) 316 H 256 H Glucose Meter Confirm Hemoglobin A1c Lactic Acid Calcium Total Bilirubin AST ALT Alkaline Phosphatase Troponin I 0.01 C-Reactive Protein Total Protein Albumin Globulin Albumin/Globulin Ratio Urine Color Urine Appearance Urine pH Ur Specific [place] Urine Protein Urine Ketones Urine Blood Urine Nitrate Urine Bilirubin Urine Urobilinogen Ur Leukocyte Esterase Urine Glucose Influenza A (Rapid) Influenza B (Rapid) 08/10/19 08/10/19 08/10/19 10:08 12:01 12:54 WBC RBC Hgb Hct MCV MCH MCHC RDW Plt Count MPV Neut % (Auto) Lymph % (Auto) Whitman % (Auto) Eos % (Auto) Baso % (Auto) Absolute Neuts (auto) Absolute Lymphs (auto) Absolute Monos (auto) Absolute Eos (auto) Absolute Basos (auto) Absolute Nucleated RBC Nucleated RBC % VBG pH VBG pCO2 VBG pO2 VBG HCO3 VBG O2 Saturation VBG Base Excess Sodium 137 Potassium 3.0 L Chloride 101 Carbon Dioxide 29 Anion Gap 7 BUN 11 Creatinine 0.88 Est GFR ( Amer) 104.5 Est GFR (Non-Af Amer) 86.4 BUN/Creatinine Ratio 12.5 Glucose 140 H POC Glucose (mg/dL) 244 H 139 H Glucose Meter Confirm Hemoglobin A1c Lactic Acid Calcium 9.0 Total Bilirubin AST ALT Alkaline Phosphatase Troponin I C-Reactive Protein Total Protein Albumin Globulin Albumin/Globulin Ratio Urine Color Urine Appearance Urine pH Ur Specific [place] Urine Protein Urine Ketones Urine Blood Urine Nitrate Urine Bilirubin Urine Urobilinogen Ur Leukocyte Esterase Urine Glucose Influenza A (Rapid) Influenza B (Rapid) Studies: Patient Name: ASIYA SPARKS Medical Record#: [id number] Ordering Physician: Robina Wrightt.#: [id number] : 1950 Age: 69 Sex: M Location: [facility] Exam Date: 08/10/19 0146 ADM Status: ADM IN Order Information: CT BRAIN WO Accession Number: [id number] CPT: 83382 PROCEDURE INFORMATION: Exam: CT Head Without Contrast Exam date and time: 08/10/2019 2:27 AM Age: 69 years old Clinical indication: Injury or trauma; Fall; Additional info: Falls TECHNIQUE: Imaging protocol: Computed tomography of the head without contrast. Radiation optimization: All CT scans at this facility use at least one of these dose optimization techniques: automated exposure control; mA and/or kV adjustment per patient size (includes targeted exams where dose is matched to clinical indication); or iterative reconstruction. COMPARISON: BRAIN WO CT BRAIN WO 07/13/2018 10:39 PM FINDINGS: Brain: The cortical sulci are prominent. No acute intracranial hemorrhage or infarct is identified. Ventricles: The ventricles are prominent. Bones/joints: Unremarkable. No acute fracture. Sinuses: Visualized sinuses are unremarkable. No fluid levels. Mastoid air cells: Visualized mastoid air cells are well aerated. Soft tissues: Unremarkable. IMPRESSION: 1. Cerebral atrophy. 2. No acute intracranial hemorrhage or infarct. 3. There is no significant interval change from the previous study. Dictated and Authenticated by: Davy Allen MD 08/10/2019 3:05 AM Eastern Time ([place] and [place]) To contact [facility] with a general question: Operations Center - [phone] For direct physician to physician contact: Physician Hotline - [phone] [facility] ([facility] Facility ID #[id number]) Patient Name: ASIYA SPARKS Medical Record#: [id number] Ordering Physician: Robina Wrightt.#: [id number] : 1950 Age: 69 Sex: M Location: [facility] Exam Date: 08/10/19121 ADM Status: ADM IN Order Information: CHEST AP/PORT Accession Number: [id number] CPT: 71515 HISTORY: hyperglycemia COMPARISONS: July 14, 2018 VIEWS: 1: frontal AP view of the chest at 1:50 AM FINDINGS: LINES AND TUBES: None. CARDIOMEDIASTINAL SILHOUETTE: The cardiomediastinal silhouette is normal for portable technique. PLEURA: The costophrenic angles are sharp. No pleural abnormalities are noted. LUNG PARENCHYMA: The lungs are clear. ABDOMEN: The upper abdomen is clear. There is no subphrenic gas. BONES AND SOFT TISSUES: No bone or soft tissue abnormalities are noted. IMPRESSION: NO ACTIVE CARDIOPULMONARY DISEASE. R1NF Preliminary Imaging Read R1NF Nutrition: consistent carbohydrate Impression: This is a 69 year old male with history of uncontrolled DM, chronic pain, HLP and gout that presented to the ED with complaints of frequent falls, and general malaise, found to be hyperglycemic with a blood glucose of >900. Diagnoses: 1. Hyperosmolar Hyperglycemic State 2. Chronic Pain. 3. Falls 4. Neuropathy 5. Lactic Acidosis 6. Macrocytic Anemia Plan: Neuro - Was lethargic at admission 2/2 acidosis, dehydration and hyperglycemia now corrected with hydration and glycemic control - CT head with no acute findings, does appear to have age-related atrophy - Non-focal, but per family, having falls and weakness, given hx of spine disease, and chronic pain, should have outpatient follow up with neuro surgery for spine imaging CV - No active issues Pulm - No active issues GI - Per RN, when placed on clears, had high sugar drinks (orange juice, cranberry juice and soda) and had high glucose readings - Changed to consistent carb diet, then patient ate 2 lunches (high sugar clears plus tray), diet is now limited to consistent carb with 2 carb servings per meal, rechecking fingerstick Renal - Creatinine elevated 2/2 dehydration at admission, now normalized with IVF administration - Continue to monitor renal function daily Endocrine - Off insulin drip, gap closed - A1c 13.8 - Check BMP again in 4 hours, continue to replete potassium, two additional K riders today - Referral for CDE made - Continue accuchecks ACHS with lispro SS - Started lantus 0.2units/kg today - Will need close outpatient follow up, as patient did not tile picker his medications at home which contributed to current state MS/Skin - Continue gabapentin, restart oxycodone BID PRN, hold for sedation - PT/OT, falls likely combination of spinal disease and diabetic neuropathy - Offloading to prevent skin breakdown ID - US gallbladder with sludge, no pericholecystic fluid, no fever and no pain - Elevated WBC count and lactic in setting of HHS/dehydration, should resolve, afebrile, no indication for antibiotics at this time, appears non toxic HEME - MCV 101 MCH 35 at admission, will send for folate level, B12; states he does not drink ETOH, however he also has fatty infiltration of his liver on US, unclear if this is a confounding factor or not DVT Prophy - HSQ Full Code Critical Care Time: 60 minutes
[2019-08-10 16:35] LABS: BUN/Creatinine Ratio 14.5 (8-20); Calcium 8.3 mg/dL (8.6-10.3); EGFR African American 111.8 (>60); EGFR Non-African American 92.4 (>60); Potassium 3.7 mmol/L (3.5-5.0)
[2019-08-10] MEDS: oxyCODONE SR TAB(*) 15 MG TAB.SR PO PRN (17:36)
[2019-08-10 18:44] LABS: Folate 7.71 ng/mL (>3.99)
[2019-08-10] MEDS: Gabapentin CAP(*) 400 MG PO SCH (20:47)
[2019-08-10] MEDS: Acetaminophen TAB* 325 MG PO PRN (23:05)
[2019-08-11] MEDS: Enoxaparin(*) 40 MG/0.4 ML SYR SUBCUT SCH (01:58)
[2019-08-11] MEDS: oxyCODONE TAB* 5 MG TAB PO PRN ×2 (05:29→16:40)
[2019-08-11] MEDS: Levothyroxine TAB* 137 MCG TAB PO SCH (05:29)
[2019-08-11] MEDS: Insulin LISPRO* 1 UNITS UNIT SUBCUT SCH ×4 (08:01→21:42)
[2019-08-11] MEDS: Gabapentin CAP(*) 100 MG PO SCH ×2 (08:01→21:43)
[2019-08-11] MEDS: Lisinopril TAB* 10 MG PO SCH (08:01)
[2019-08-11] MEDS: Allopurinol TAB* 100 MG PO SCH (08:02)
[2019-08-11] MEDS: oxyCODONE SR TAB(*) 15 MG TAB.SR PO PRN ×2 (08:04→21:52)
[2019-08-11] MEDS ORDERED: Insulin LISPRO* 1 UNITS UNIT SUBCUT ONE ×2 (09:03→10:00)
[2019-08-11] MEDS: Acetaminophen TAB* 325 MG PO PRN (13:08)
[2019-08-11] MEDS ORDERED: NS 0.9% 1000 ML** 1,000 ML IV SCH (13:15)
--- NOTE | 2019-08-11 13:22 | PN ---
Date of Service: 08/11/19 Critical Care Services: Patient seen and examined. Discussed his diet and high sugars this morning. States he has some aches, but no overt pain. Denies SOB, no chest pain, afebrile. No Weakness but does endorse fatigue. Discussed titration of insulin, transfer to floor and PT, he is in agreement with this plan. Vital Signs: Temp Pulse Resp BP SpO2 FiO2 97.2 F 70 17 125/61 97 08/11/19 11:48 08/11/19 12:00 08/11/19 12:00 08/11/19 07:02 08/11/19 12:00 Physical Exam: Gen: Alert, NAD HEENT: Atraumatic, normocephalic, PERRLA Lungs: Clear bilaterally to auscultation Cardiac: normal S1S2, no murmurs, regular Abdomen: benign, non tender Extremities: no clubbing or edema, ambulated with walker today Neuro: Non focal, A&Ox3 Fluid Balance (Past 24 Hours): Intake & Output 08/09/19 08/10/19 08/11/19 08/12/19 06:59 06:59 06:59 06:59 Intake Total 1947 4123 240 Output Total 500 3050 Balance 1447 1073 240 Weight 197 lb 5.019 oz 195 lb Intake: IV Fluids 474 1517 D5W 1/2 NS 20 meq KCL 336 KCL 18 81 NS (0.9%) 456 1100 Medicated IV 33 56 CC - Insulin 33 56 Oral 1440 2550 240 Output: Urine 500 3050 Labs: Laboratory Results - last 24 hr 08/10/19 08/10/19 08/10/19 11:05 12:02 14:05 Sodium Potassium Chloride Carbon Dioxide Anion Gap BUN Creatinine Est GFR ( Amer) Est GFR (Non-Af Amer) BUN/Creatinine Ratio Glucose POC Glucose (mg/dL) 189 H 142 H 286 H Glucose Meter Confirm Calcium Vitamin B12 Folate 08/10/19 08/10/19 08/10/19 16:00 17:19 17:30 Sodium 131 L Potassium 3.7 Chloride 98 L Carbon Dioxide 24 Anion Gap 9 BUN 12 Creatinine 0.83 Est GFR ( Amer) 111.8 Est GFR (Non-Af Amer) 92.4 BUN/Creatinine Ratio 14.5 Glucose 437 H POC Glucose (mg/dL) 442 H* Glucose Meter Confirm Calcium 8.3 L Vitamin B12 205 Folate 7.71 08/10/19 08/11/19 08/11/19 21:00 07:50 11:36 Sodium Potassium Chloride Carbon Dioxide Anion Gap BUN Creatinine Est GFR ( Amer) Est GFR (Non-Af Amer) BUN/Creatinine Ratio Glucose POC Glucose (mg/dL) 347 H 356 H Glucose Meter Confirm 418 H Calcium Vitamin B12 Folate Studies: Patient Name: ASIYA SPARKS Medical Record#: [id number] Ordering Physician: Robina Turner DO Acct.#: [id number] : 1950 Age: 69 Sex: M Location: [facility] Exam Date: 08/10/19 014 ADM Status: ADM IN Order Information: CT BRAIN WO Accession Number: [id number] CPT: 64480 PROCEDURE INFORMATION: Exam: CT Head Without Contrast Exam date and time: 08/10/2019 2:27 AM Age: 69 years old Clinical indication: Injury or trauma; Fall; Additional info: Falls TECHNIQUE: Imaging protocol: Computed tomography of the head without contrast. Radiation optimization: All CT scans at this facility use at least one of these dose optimization techniques: automated exposure control; mA and/or kV adjustment per patient size (includes targeted exams where dose is matched to clinical indication); or iterative reconstruction. COMPARISON: BRAIN WO CT BRAIN WO 07/13/2018 10:39 PM FINDINGS: Brain: The cortical sulci are prominent. No acute intracranial hemorrhage or infarct is identified. Ventricles: The ventricles are prominent. Bones/joints: Unremarkable. No acute fracture. Sinuses: Visualized sinuses are unremarkable. No fluid levels. Mastoid air cells: Visualized mastoid air cells are well aerated. Soft tissues: Unremarkable. IMPRESSION: 1. Cerebral atrophy. 2. No acute intracranial hemorrhage or infarct. 3. There is no significant interval change from the previous study. Dictated and Authenticated by: Davy Allen MD 08/10/2019 3:05 AM Eastern Time ([place] and [place]) To contact [facility] with a general question: [facility] - [phone] For direct physician to physician contact: Physician Hotline - [phone] [facility] ([facility] Facility ID #[id number]) Patient Name: ASIYA SPARKS Medical Record#: [id number] Ordering Physician: Robina Turner DO Acct.#: [id number] : 1950 Age: 69 Sex: M Location: [facility] Exam Date: 08/10/19121 ADM Status: ADM IN Order Information: CHEST AP/PORT Accession Number: [id number] CPT: 37744 HISTORY: hyperglycemia COMPARISONS: July 14, 2018 VIEWS: 1: frontal AP view of the chest at 1:50 AM FINDINGS: LINES AND TUBES: None. CARDIOMEDIASTINAL SILHOUETTE: The cardiomediastinal silhouette is normal for portable technique. PLEURA: The costophrenic angles are sharp. No pleural abnormalities are noted. LUNG PARENCHYMA: The lungs are clear. ABDOMEN: The upper abdomen is clear. There is no subphrenic gas. BONES AND SOFT TISSUES: No bone or soft tissue abnormalities are noted. IMPRESSION: NO ACTIVE CARDIOPULMONARY DISEASE. R1NF Preliminary Imaging Read R1NF Nutrition: Consistent carb, no concentrated sweets, limit 2 carbs servings per meal Impression: This is a 69 year old male with history of uncontrolled DM, chronic pain, HLP and gout that presented to the ED with complaints of frequent falls, and general malaise, found to be hyperglycemic with a blood glucose of >900. Diagnoses: 1. Hyperosmolar Hyperglycemic State 2. Chronic Pain 3. Falls 4. Neuropathy 5. Lactic Acidosis 6. Macrocytic Anemia P Plan: Neuro - Was lethargic at admission 2/2 acidosis, dehydration and hyperglycemia now corrected with hydration and glycemic control - CT head with no acute findings, does appear to have age-related atrophy - Non-focal, but per family, having falls and weakness, given hx of spine disease, and chronic pain, should have outpatient follow up with neuro surgery for spine imaging CV - No active issues Pulm - No active issues GI - Per RN, when placed on clears, had high sugar drinks (orange juice, cranberry juice and soda) and had high glucose readings, similarly today, sugars are still in the 300-400 range - Changed to consistent carb diet, then patient ate 2 lunches (high sugar clears plus tray), diet is now limited to consistent carb with 2 carb servings per meal, patient has been counseled Renal - Creatinine elevated 2/2 dehydration at admission, now normalized with IVF administration - Continue to monitor renal function daily Endocrine - Off insulin drip, gap closed, recheck labs today given high sugars again this morning - A1c 13.8 - CDE consult appreciated - Continue accuchecks ACHS with lispro SS, increased dosing - Started lantus 0.2units/kg (17units) yesterday, however sugars are still high , will increase to 22 units this evening - Metformin restarted today - Will need close outpatient follow up, as patient did not spanish moss picker his medications at home which contributed to current state MS/Skin - Continue gabapentin, restart oxycodone BID PRN, hold for sedation - PT/OT, falls likely combination of spinal disease and diabetic neuropathy - Offloading to prevent skin breakdown ID - US gallbladder with sludge, no pericholecystic fluid, no fever and no pain - Elevated WBC count and lactic in setting of HHS/dehydration, should resolve, afebrile, no indication for antibiotics at this time, appears non toxic HEME - MCV 101 MCH 35 at admission; states he does not drink ETOH, however he also has fatty infiltration of his liver on US, unclear if this is a confounding factor or not - B12 205, very low normal range, folate 7.71 which is normal. Likely would benefit from B12 supplementation DVT Prophy - HSQ Full Code Critical Care Time: 35 minutes, stable for transfer to medical floor
[2019-08-11] MEDS: metFORMIN* 1,000 MG TAB PO SCH (16:39)
[2019-08-11] MEDS: Cyanocobalamin TAB* 500 MCG PO SCH (16:39)
[2019-08-11] MEDS: Insulin GLARGINE(*) 1 UNITS UNIT SUBCUT SCH (16:39)
[2019-08-11] MEDS: Multivitamins/Minerals TAB PO SCH (16:40)
[2019-08-11 17:01] LABS: Hematocrit 36 % (42-52); Hemoglobin 13.2 g/dL (14.0-18.0); Mean Corpuscular HGB Conc 37 g/dL (31-36); Mean Corpuscular Hemoglobin 36 pg (27-31); Mean Corpuscular Volume 98 fL (80-94); Mean Platelet Volume 9.7 fL (7.4-10.4); Platelet Count 108 10^3/uL (150-450); Red Blood Count 3.68 10^6 /uL (4.18-5.48); Red Cell Distribution Width 13 % (10-15); White Blood Count 7.5 10^3/uL (3.5-10.8)
[2019-08-11 17:13] LABS: BUN/Creatinine Ratio 17.6 (8-20); Calcium 8.2 mg/dL (8.6-10.3); EGFR African American 127.7 (>60); EGFR Non-African American 105.5 (>60); Potassium 3.8 mmol/L (3.5-5.0)
[2019-08-11] MEDS: Gabapentin CAP(*) 400 MG PO SCH (21:42)
[2019-08-12] MEDS: Enoxaparin(*) 40 MG/0.4 ML SYR SUBCUT SCH (02:30)
[2019-08-12] MEDS: Levothyroxine TAB* 137 MCG TAB PO SCH (05:32)
[2019-08-12] MEDS: Allopurinol TAB* 100 MG PO SCH (08:30)
[2019-08-12] MEDS: Lisinopril TAB* 10 MG PO SCH (08:30)
[2019-08-12] MEDS: metFORMIN* 1,000 MG TAB PO SCH ×2 (08:31→17:28)
[2019-08-12] MEDS: Multivitamins/Minerals TAB PO SCH (08:31)
[2019-08-12] MEDS: Cyanocobalamin TAB* 500 MCG PO SCH (08:31)
[2019-08-12] MEDS: Gabapentin CAP(*) 100 MG PO SCH ×2 (08:31→20:10)
[2019-08-12] MEDS: Insulin LISPRO* 1 UNITS UNIT SUBCUT SCH ×5 (08:32→20:09)
[2019-08-12] MEDS: Acetaminophen TAB* 325 MG PO PRN ×2 (09:53→20:13)
[2019-08-12] MEDS: oxyCODONE SR TAB(*) 15 MG TAB.SR PO PRN ×2 (09:54→22:00)
[2019-08-12] MEDS: Insulin GLARGINE(*) 1 UNITS UNIT SUBCUT SCH (15:01)
--- NOTE | 2019-08-12 17:12 | PN ---
Subjective Date of Service: 08/12/19 Interval History: HOSPITALIST PROGRESS NOTE Patient seen and examined at bedside. Care reviewed and d/w Macarena Menendez RN. He feels well today. Major complain is right knee pain that started after a fall. Family History: Unchanged from Admission Social History: Unchanged from Admission Past Medical History: Unchanged from Admission Objective Active Medications: Acetaminophen (Tylenol Tab*) 650 mg PO Q4H PRN PRN Reason: PAIN - MILD Last Admin: 08/12/19 09:53 Dose: 650 mg Al Hydrox/Mg Hydrox/Simethicone (Maalox Plus*) 30 ml PO Q6H PRN PRN Reason: INDIGESTION Allopurinol (Zyloprim Tab*) 100 mg PO DAILY [facility] Last Admin: 08/12/19 08:30 Dose: 100 mg Cyanocobalamin (Vitamin B12 Tab*) 1,000 mcg PO DAILY [facility] Last Admin: 08/12/19 08:31 Dose: 1,000 mcg Dextrose (D50w Syringe 50 Ml*) 12.5 gm IV PUSH .FOR FS < 60 - SS PRN PRN Reason: FS < 60 Fondaparinux (Arixtra*) 2.5 mg SUBCUT DAILY [facility] Gabapentin (Neurontin Cap(*)) 400 mg PO BEDTIME [facility] Last Admin: 08/11/19 21:42 Dose: 400 mg Gabapentin (Neurontin Cap(*)) 200 mg PO BID [facility] Last Admin: 08/12/19 08:31 Dose: 200 mg Insulin Glargine (Lantus(*)) 22 units SUBCUT Q24H [facility] Last Admin: 08/12/19 15:01 Dose: 22 units Insulin Human Lispro (Humalog*) 0 units SUBCUT ACHS [facility]; Protocol Last Admin: 08/12/19 12:18 Dose: 9 units Levothyroxine Sodium (Synthroid Tab*) 137 mcg PO DAILY@0600 [facility] Last Admin: 08/12/19 05:32 Dose: 137 mcg Lisinopril (Prinivil Tab*) 10 mg PO DAILY [facility] Last Admin: 08/12/19 08:30 Dose: 10 mg Metformin HCl (Glucophage*) 1,000 mg PO 0800,1700 [facility] Last Admin: 08/12/19 08:31 Dose: 1,000 mg Multivitamins/Minerals (Theragran/Minerals Tab*) 1 tab PO DAILY [facility] Last Admin: 08/12/19 08:31 Dose: 1 tab Oxycodone HCl (Oxycontin(*)) 30 mg PO Q12HR PRN PRN Reason: moderate to severe pain Last Admin: 08/12/19 09:54 Dose: 30 mg Oxycodone HCl (Roxycodone Tab*) 5 mg PO Q6H PRN PRN Reason: PAIN Last Admin: 08/11/19 16:40 Dose: 5 mg Polyethylene Glycol/Electrolytes (Miralax*) 17 gm PO DAILY PRN PRN Reason: CONSTIPATION Risperidone (Risperdal) 0.5 mg PO BID [facility] Last Admin: 08/12/19 08:30 Dose: 0.5 mg Vital Signs - 8 hr 08/12/19 08/12/19 08/12/19 09:54 10:20 11:15 Temperature 97.7 F Pulse Rate 76 Respiratory 16 17 18 Rate Blood Pressure 115/69 (mmHg) O2 Sat by Pulse 97 Oximetry Oxygen Devices in Use Now: None Appearance: Elderly gentleman sitting up in a chair in NAD. Eyes: No Scleral Icterus Ears/Nose/Mouth/Throat: Mucous Membranes Moist Neck: Trachea Midline Respiratory: Symmetrical Chest Expansion and Respiratory Effort, Clear to Auscultation Cardiovascular: RRR - Normal S1 and S2 Extremities: - - Right knee has small bruise, mild edema, no warmth, no pain on palpation, full passive and active ROM Result Diagrams: 08/11/19 16:44 08/11/19 16:44 Assess/Plan/Problems-Billing Assessment: Mr Dumont is a 69yo M with PMH of type 2 DM, chronic pain, HLD, hypothyroidism, and gout, who presented to ED with c/o weakness and multiple falls, found to be in Hyperosmolar hyperglycemic state. - Patient Problems (1) Hyperosmolar non-ketotic state in patient with type 2 diabetes mellitus Comment: - A1c is 13.8. - Will request Endocrinology consult. - Increase Lantus to 30 units and continue Lispro SS with carb coverage. (2) Knee pain, right Comment: - Likely secondary to trauma from fall. No signs of arthritis at this time. - xray showed osteoarthritis, but no osseous injuries. - As he has a h/o gout, will also check uric acid, CRP, ESR. - Continue pain management with Acetaminophen and Oxycodone. - If no significant improvement, will consult Ortho. (3) GLENN (acute kidney injury) Comment: - Secondary to dehydration due to HHS - resolved. (4) Thrombocytopenia Comment: - Platelets dropped from 178 to 108 in 3 days. - It can be secondary to consumption associated with acute illness, but concerned heparin could be playing a role too. - D/c heparin and check PF4 antibody. (5) Physical deconditioning Comment: - Continue PT/OT. (6) DVT prophylaxis Comment: - D/c heparin and start Fondaparinux. (7) Full code status Status and Disposition: Inpatient.
[2019-08-12] MEDS ORDERED: Insulin GLARGINE(*) 1 UNITS UNIT SUBCUT ONE (17:25)
[2019-08-12] MEDS ORDERED: Dextrose 50% Syringe 50 ML* 25 GM/50 ML SYRINGE IV PUSH PRN (17:26)
[2019-08-12] MEDS: Polyethylene Glycol 3350* 17 GM PACKET PO PRN (17:34)
[2019-08-12] MEDS: oxyCODONE TAB* 5 MG TAB PO PRN (17:34)
[2019-08-12] MEDS: Gabapentin CAP(*) 400 MG PO SCH (20:10)
[2019-08-13] MEDS: Levothyroxine TAB* 137 MCG TAB PO SCH (05:32)
[2019-08-13 08:07] LABS: BUN/Creatinine Ratio 13.7 (8-20); Calcium 8.5 mg/dL (8.6-10.3); EGFR African American 129.7 (>60); EGFR Non-African American 107.2 (>60); Potassium 3.9 mmol/L (3.5-5.0)
[2019-08-13 08:28] LABS: Hematocrit 35 % (42-52); Hemoglobin 12.3 g/dL (14.0-18.0); Mean Corpuscular HGB Conc 36 g/dL (31-36); Mean Corpuscular Hemoglobin 35 pg (27-31); Mean Corpuscular Volume 99 fL (80-94); Mean Platelet Volume 9.7 fL (7.4-10.4); Platelet Count 99 10^3/uL (150-450); Red Blood Count 3.52 10^6 /uL (4.18-5.48); Red Cell Distribution Width 13 % (10-15); White Blood Count 4.7 10^3/uL (3.5-10.8)
[2019-08-13 08:47] LABS: ABS Eosinophils 0.1 10^3/ul (0-0.6); ABS Lymphocytes 1.8 10^3/ul (1.0-4.8); ABS Monocytes 0.5 10^3/ul (0-0.8); ABS Neutrophils 2.2 10^3/ul (1.5-7.7); Eosinophil % 2.3 %; Lymphocyte % 38.5 %; Nucleated Red Blood Cells % 0.1
[2019-08-13] MEDS: Multivitamins/Minerals TAB PO SCH (10:02)
[2019-08-13] MEDS: Lisinopril TAB* 10 MG PO SCH (10:02)
[2019-08-13] MEDS: oxyCODONE SR TAB(*) 15 MG TAB.SR PO PRN ×2 (10:03→22:23)
[2019-08-13] MEDS: Allopurinol TAB* 100 MG PO SCH (10:04)
[2019-08-13] MEDS: metFORMIN* 1,000 MG TAB PO SCH ×2 (10:04→19:20)
[2019-08-13] MEDS: Cyanocobalamin TAB* 500 MCG PO SCH (10:04)
[2019-08-13] MEDS: Gabapentin CAP(*) 100 MG PO SCH ×2 (10:05→20:49)
[2019-08-13] MEDS: Polyethylene Glycol 3350* 17 GM PACKET PO PRN (10:09)
[2019-08-13] MEDS: Insulin GLARGINE(*) 1 UNITS UNIT SUBCUT SCH (10:28)
[2019-08-13] MEDS: Insulin LISPRO* 1 UNITS UNIT SUBCUT SCH ×7 (10:29→20:48)
[2019-08-13] MEDS: Fondaparinux* 2.5 MG/0.5 ML SYRINGE SUBCUT SCH (12:38)
--- NOTE | 2019-08-13 13:42 | PN ---
Subjective Date of Service: 08/13/19 Interval History: No c/o. Walking slowly improving. He has no steps in his house or at the entrance. Family History: Unchanged from Admission Social History: Unchanged from Admission Past Medical History: Unchanged from Admission Objective Active Medications: Acetaminophen (Tylenol Tab*) 650 mg PO Q4H PRN PRN Reason: PAIN - MILD Last Admin: 08/12/19 20:13 Dose: 650 mg Al Hydrox/Mg Hydrox/Simethicone (Maalox Plus*) 30 ml PO Q6H PRN PRN Reason: INDIGESTION Allopurinol (Zyloprim Tab*) 100 mg PO DAILY [facility] Last Admin: 08/13/19 10:04 Dose: 100 mg Cyanocobalamin (Vitamin B12 Tab*) 1,000 mcg PO DAILY [facility] Last Admin: 08/13/19 10:04 Dose: 1,000 mcg Dextrose (D50w Syringe 50 Ml*) 12.5 gm IV PUSH .FOR FS < 60 - SS PRN PRN Reason: FS < 60 Fondaparinux (Arixtra*) 2.5 mg SUBCUT DAILY [facility] Last Admin: 08/13/19 12:38 Dose: 2.5 mg Gabapentin (Neurontin Cap(*)) 400 mg PO BEDTIME [facility] Last Admin: 08/12/19 20:10 Dose: 400 mg Gabapentin (Neurontin Cap(*)) 200 mg PO BID [facility] Last Admin: 08/13/19 10:05 Dose: 200 mg Insulin Glargine (Lantus(*)) 30 units SUBCUT DAILY [facility] Last Admin: 08/13/19 10:28 Dose: 30 units Insulin Human Lispro (Humalog*) 0 units SUBCUT ACHS [facility]; Protocol Last Admin: 08/13/19 10:29 Dose: 6 units Insulin Human Lispro (Humalog*) 0 units SUBCUT AC [facility]; Protocol Last Admin: 08/13/19 10:29 Dose: 5 units Levothyroxine Sodium (Synthroid Tab*) 137 mcg PO DAILY@0600 [facility] Last Admin: 08/13/19 05:32 Dose: 137 mcg Lisinopril (Prinivil Tab*) 10 mg PO DAILY [facility] Last Admin: 08/13/19 10:02 Dose: 10 mg Metformin HCl (Glucophage*) 1,000 mg PO 0800,1700 [facility] Last Admin: 08/13/19 10:04 Dose: 1,000 mg Multivitamins/Minerals (Theragran/Minerals Tab*) 1 tab PO DAILY [facility] Last Admin: 08/13/19 10:02 Dose: 1 tab Oxycodone HCl (Oxycontin(*)) 30 mg PO Q12HR PRN PRN Reason: moderate to severe pain Last Admin: 08/13/19 10:03 Dose: 30 mg Oxycodone HCl (Roxycodone Tab*) 5 mg PO Q6H PRN PRN Reason: PAIN Last Admin: 08/12/19 17:34 Dose: 5 mg Polyethylene Glycol/Electrolytes (Miralax*) 17 gm PO DAILY PRN PRN Reason: CONSTIPATION Last Admin: 08/12/19 17:34 Dose: 17 gm Risperidone (Risperdal) 0.5 mg PO BID [facility] Last Admin: 08/13/19 10:06 Dose: 0.5 mg Vital Signs - 8 hr 08/13/19 08/13/19 08/13/19 07:36 10:03 10:05 Temperature 98.0 F Pulse Rate 65 Respiratory 16 18 18 Rate Blood Pressure 145/79 (mmHg) O2 Sat by Pulse 98 Oximetry Oxygen Devices in Use Now: None Appearance: Alert, sl up in bed. In good spirits. Looks comfortable. Eyes: No Scleral Icterus Extremities: No Edema, No Clubbing, Cyanosis, - Skin: No Rash or Ulcers, No Nodules or Sclerosis, - Neurological: Alert and Oriented x 3, NL Sensation Result Diagrams: 08/13/19 07:35 08/13/19 07:35 Microbiology and Other Data: Microbiology 08/10/19 02:40 Nasal Screen MRSA (PCR) - Final Nasal Mrsa Not Detected Assess/Plan/Problems-Billing Assessment: Mr Dumont is a 69yo M with PMH of type 2 DM, chronic pain, HLD, hypothyroidism, and gout, who presented to ED with c/o weakness and multiple falls, found to be in Hyperosmolar hyperglycemic state. - Patient Problems (1) Hyperosmolar non-ketotic state in patient with type 2 diabetes mellitus Current Visit: Yes Status: Acute Code(s): E11.01 - TYPE 2 DIABETES MELLITUS WITH HYPEROSMOLARITY WITH COMA SNOMED Code(s): 045397656 Comment: - A1c is 13.8. - Increase Lantus to 30 units 08/13/19 and continue Lispro SS with carb coverage , metformin. Holding dulaglutide. (2) Thrombocytopenia Current Visit: Yes Status: Acute Code(s): D69.6 - THROMBOCYTOPENIA, UNSPECIFIED SNOMED Code(s): 840812144 Comment: - Platelets dropped from 178 to 99 in 3 days. - It can be secondary to consumption associated with acute illness, but concerned heparin could be playing a role too. PF4 antibody pending. Continue Fondaparinux. (3) Knee pain, right Current Visit: Yes Status: Acute Code(s): M25.561 - PAIN IN RIGHT KNEE SNOMED Code(s): 28954114 Comment: - Likely secondary to trauma from fall. No signs of arthritis at this time. - xray showed osteoarthritis, but no osseous injuries. - As he has a h/o gout, will also check uric acid, CRP, ESR. - Continue pain management with Acetaminophen and Oxycodone. Improved , near baseline. Note patient takes anlagesics chronically for his back pain. Status and Disposition: Inpatient.
[2019-08-13] MEDS: oxyCODONE TAB* 5 MG TAB PO PRN ×2 (14:49→20:49)
[2019-08-13] MEDS: Gabapentin CAP(*) 400 MG PO SCH (20:49)
[2019-08-14] MEDS: oxyCODONE TAB* 5 MG TAB PO PRN ×2 (05:15→13:01)
[2019-08-14] MEDS: Levothyroxine TAB* 137 MCG TAB PO SCH (05:15)
[2019-08-14] MEDS: Insulin LISPRO* 1 UNITS UNIT SUBCUT SCH ×4 (08:25→13:40)
[2019-08-14] MEDS: Lisinopril TAB* 10 MG PO SCH (08:26)
[2019-08-14] MEDS: Cyanocobalamin TAB* 500 MCG PO SCH (08:26)
[2019-08-14] MEDS: Allopurinol TAB* 100 MG PO SCH (08:26)
[2019-08-14] MEDS: Multivitamins/Minerals TAB PO SCH (08:27)
[2019-08-14] MEDS: metFORMIN* 1,000 MG TAB PO SCH (08:27)
[2019-08-14] MEDS: Gabapentin CAP(*) 100 MG PO SCH (08:27)
[2019-08-14] MEDS: Insulin GLARGINE(*) 1 UNITS UNIT SUBCUT SCH (08:29)
[2019-08-14] MEDS: Fondaparinux* 2.5 MG/0.5 ML SYRINGE SUBCUT SCH (08:35)
[2019-08-14] MEDS ORDERED: Insulin GLARGINE(*) 1 UNITS UNIT SUBCUT ONE ×2 (09:00→11:54)
--- NOTE | 2019-08-14 12:30 | PN ---
Progress Note - Progress Note Date of Service: 08/14/19 Note: Time spent on discharge including exam of patient, discussion with patient, nurse, CM, retail pharmacist, review of EHR and preparation documents is 45 minutes.
--- NOTE | 2019-08-14 13:05 | DS ---
CC: Dr. Tracey * DISCHARGE SUMMARY: DATE OF ADMISSION: DATE OF DISCHARGE: 08/14/19 HISTORY OF PRESENT ILLNESS/HOSPITAL COURSE: This 69-year-old man presented with history of falls and change in mental status. On arrival, the patient had poor concentration and was forgetful. He was found to have a glucose of 906. He was not acidotic. He was treated with insulin and intravenous fluids. He had complete recovery to his baseline status. He had a CT scan of the brain which was unremarkable. He is being started on short acting insulin and Lantus insulin. He will continue on his metformin. I am holding off the dulaglutide for the initial period till he is seeing his primary care doctor. FINAL DIAGNOSES: 1. Diabetic hyperosmolar hyperglycemic state. 2. Thrombocytopenia with PF4 antibody pending. 3. Right knee pain resolved. 4. History of gout. DISCHARGE MEDICATIONS: 1. Glargine insulin 40 units every morning. 2. Humalog insulin 10 units 3 times a day with meals. 3. Felodipine 10 mg daily. 4. Multivitamin daily. 5. Amitriptyline half a tablet daily. 6. Levothyroxine 137 mcg daily. 7. Oxycodone 30 mg b.i.d. 8. Aspirin 81 mg daily. 9. Metformin 1000 mg b.i.d. 10. Nabumetone 500 mg daily. 11. Atorvastatin 10 mg daily. 12. Amlodipine 10 mg daily. 13. Dulaglutide is on hold for now. CONDITION ON DISCHARGE: Improved. DISPOSITION ON DISCHARGE: Discharged home. [id number]/[facility] #: [id number] KENISHA
[2019-08-14] MEDS: Acetaminophen TAB* 325 MG PO PRN (15:34)
[2019-08-14 15:38] VITALS: BP 142/61
[2019-08-14 20:55] LABS: HIT ELISA < 0.075 OD (<0.400)
== END 2019-08-14 16:25 | disposition home or self-care (01) | DRG 638 ==
LOC: ED 23:23 → ICU 08-10 01:09 → MED 08-11 17:07
PROVIDERS: ADMIT Internal Medicine; ATTEND Internal Medicine
DX: E11.00 Type 2 diabetes mellitus with hyperosmolarity without nonketotic hyperglycemic-hyperosmolar coma (NKHHC) (principal); N17.9 Acute kidney failure, unspecified; I10 Essential (primary) hypertension; M10.9 Gout, unspecified; M54.9 Dorsalgia, unspecified; D69.6 Thrombocytopenia, unspecified; G89.4 Chronic pain syndrome; E78.5 Hyperlipidemia, unspecified; E03.9 Hypothyroidism, unspecified; E83.52 Hypercalcemia; R16.0 Hepatomegaly, not elsewhere classified; E11.40 Type 2 diabetes mellitus with diabetic neuropathy, unspecified; D53.9 Nutritional anemia, unspecified; E86.0 Dehydration; K82.8 Other specified diseases of gallbladder; S80.01XA Contusion of right knee, initial encounter; M17.11 Unilateral primary osteoarthritis, right knee; R53.81 Other malaise; K21.9 Gastro-esophageal reflux disease without esophagitis; Z87.11 Personal history of peptic ulcer disease; Z87.891 Personal history of nicotine dependence; Z91.81 History of falling; W19.XXXA Unspecified fall, initial encounter; Y92.009 Unspecified place in unspecified non-institutional (private) residence as the place of occurrence of the external cause; Z88.8 Allergy status to other drugs, medicaments and biological substances
CPT/HCPCS: 36415; 70450; 71045; 76705; 80048; 80053; 81003; 82607; 82746; 82803; 82947; 83036; 83605; 84484; 85025; 85027; 85060; 86022; 86140; 87641; 93005; 99284; A9270-GY; J1650; J1815; J3480

== ENCOUNTER 2020-09-12 11:24 | Inpatient (IN) ==
[~2020-09-12 11:24] MED LIST: Buffered Lidocaine 1% SYRIN 1 ml INTRADERM ONE; Famotidine IV 10 MG/ML 2 ml VIAL (20 mg) IV ONE; Lactated Ringers 1000 ml BAG 1,000 ML IV SCH; Midazolam 2 mg/2 ml VIAL 1 mg/ml 2 ml VIAL (2 mg) ONE; Phenylephrine IV 10 MG/ML 1 ml VIAL ONE; Propofol 10 MG/ML 20 ML BTL ONE; Rocuronium 50 mg VIAL 10 mg/ml 5 ml VIAL (50 mg) ONE; Succinylcholine 200 mg VIAL 20 mg/ml 10 ml VIAL (200 mg) ONE; fentaNYL 250 mcg/5 ml 50 MCG/ML 5 ml VIAL (250 MCG) ONE
[2020-09-12] MEDS ORDERED: Famotidine IV 10 MG/ML 2 ml VIAL (20 mg) ONE (11:46)
[2020-09-12] MEDS ORDERED: ceFAZolin 2 GM PREMIX 2 GM/50 ML BAG ONE (11:46)
[2020-09-12 12:54] LABS: INR 1.19 (0.82-1.09)
[2020-09-12] MEDS ORDERED: Insulin ASPART (NF) 1 UNIT SUBCUT ONE (13:55)
[2020-09-12] MEDS ORDERED: Dextrose 50% Syringe 50 ml 25 GM/50 ML SYRINGE IV PUSH PRN (14:10)
[2020-09-12] MEDS ORDERED: Remifentanil 2 MG VIAL ONE ×3 (14:11→18:37)
[2020-09-12] MEDS ORDERED: Propofol 10 mg/ml 100 ML BTL 0 ML ONE (14:15)
[2020-09-12] MEDS ORDERED: Bacitracin INJECTION 50,000 UNITS ONE (14:20)
[2020-09-12] MEDS ORDERED: Bupivacaine 0.25% SDV 30 ML ONE (14:20)
[2020-09-12] MEDS ORDERED: Propofol 10 MG/ML 20 ML BTL ONE (18:08)
[2020-09-12] MEDS ORDERED: Dexamethasone IV 4 MG/ML VIAL 1 ml VIAL ONE (18:08)
[2020-09-12] MEDS ORDERED: Propofol 10 mg/ml 100 ML BTL 100 ML ONE (18:15)
[2020-09-12] MEDS ORDERED: Ondansetron 4 mg VIAL 2 MG/ML 2 ml VIAL IV PRN ×2 (21:03→21:23)
[2020-09-12] MEDS ORDERED: Magnesium Hydroxide LIQ 30 ML UDC PO PRN (21:03)
[2020-09-12] MEDS ORDERED: Naloxone 0.4 mg VIAL 0.4 mg/ml 1 ml VIAL IV PRN (21:23)
[2020-09-12] MEDS ORDERED: HYDROmorphone 1 MG/1 ML SYRINGE ONE ×3 (21:26→22:07)
[2020-09-12] MEDS: HYDROmorphone 1 MG/1 ML SYRINGE IV PRN ×6 (21:33→22:12)
[2020-09-12] MEDS ORDERED: Lactated Ringers 1000 ml BAG 1,000 ML IV SCH (22:00)
[2020-09-12] MEDS: oxyCODONE SR 15 mg TAB PO SCH (23:37)
[2020-09-13 06:00] LABS: Albumin 3.6 g/dL (3.2-5.2); Albumin/Globulin Ratio 1.1 (1-3); BUN/Creatinine Ratio 15.1 (8-20); Calcium 8.9 mg/dL (8.6-10.3); EGFR African American 97.8 (>60); EGFR Non-African American 80.8 (>60); Globulin 3.3 g/dL (2-4); Potassium 4.4 mmol/L (3.5-5.0); Total Bilirubin 0.9 mg/dL (0.2-1.0); Total Protein 6.9 g/dL (6.4-8.9)
[2020-09-13 06:00] LABS: ABS Lymphocytes 1.3 10^3/ul (1.0-4.8); ABS Monocytes 0.4 10^3/ul (0-0.8); ABS Neutrophils 7.6 10^3/ul (1.5-7.7); Eosinophil % 0.1 %; Hematocrit 36 % (42-52); Hemoglobin 12.7 g/dL (14.0-18.0); Lymphocyte % 13.8 %; Mean Corpuscular HGB Conc 36 g/dL (31-36); Mean Corpuscular Hemoglobin 34 pg (27-31); Mean Corpuscular Volume 96 fL (80-94); Platelet Count 120 10^3/uL (150-450); Red Blood Count 3.73 10^6 /uL (4.18-5.48); Red Cell Distribution Width 13 % (10-15); White Blood Count 9.4 10^3/uL (3.5-10.8)
[2020-09-13] MEDS ORDERED: FELODIPINE 5 MG PO SCH (09:00)
[2020-09-13] MEDS: oxyCODONE SR 15 mg TAB PO SCH (11:04)
[2020-09-13 16:00] VITALS: BP 138/69
[2020-09-13] MEDS ORDERED: Insulin GLARGINE 100 un/ml 10 ml VIAL SUBCUT SCH (18:00)
== END 2020-09-13 17:30 | disposition home or self-care (01) | DRG 460 ==
LOC: OR 11:24 → SSU 22:46
PROVIDERS: ADMIT Neurological Surgery; ATTEND Neurological Surgery